=== PATIENT | male | born 1960 | race Caucasian/White ===

== ENCOUNTER 2018-01-24 16:10 | Inpatient (IN) | payer MEDICAID ==
[~2018-01-24] VITALS: Ht 195.6 cm; Wt 109.9 kg
[~2018-01-24 16:10] MED LIST: ARIP5TAB4 PO; FOLI1TAB16 PO; PANT-47 PO; THI100T PO; TRAZ-91 PO
[2018-01-24 16:38] LABS: BASOPHILS % (AUTO) 0.2 % (0-1); EOSINOPHILS % (AUTO) 0.2 % (0-6); HEMATOCRIT 26.8 % (42.0-52.0); HEMOGLOBIN 9.4 g/dl (14.0-17.9); LYMPHOCYTES # (AUTO) 3.7 X10'3 (1.1-4.8); LYMPHOCYTES % (AUTO) 20.7 % (21-51); MEAN CORPUSCULAR HEMOGLOBIN 33.6 PG (27.0-31.0); MEAN CORPUSCULAR HGB CONC 35.1 % (33.0-36.5); MEAN CORPUSCULAR VOLUME 95.8 FL (78-98); MEAN PLATELET VOLUME 7.5 FL (7.4-10.4); MONOCYTES # (AUTO) 1.1 X10'3 (0-0.9); MONOCYTES % (AUTO) 6.4 % (2-12); NEUTROPHILS # (AUTO) 12.9 X10'3 (1.8-7.7); NEUTROPHILS % (AUTO) 72.5 % (42-75); PLATELET COUNT 252 X10'3 (140-440); RED CELL DISTRIBUTION WIDTH 15.3 % (11.5-14.5); WHITE BLOOD COUNT 17.8 X10'3 (4.5-11.0)
[2018-01-24 16:48] LABS: PROTHROMBIN TIME 10.8 SECONDS (9.0-12.0)
[2018-01-24 16:53] LABS: ALANINE AMINOTRANSFERASE 54 U/L (12-78); ALBUMIN 2.6 G/DL (3.4-5.0); ALKALINE PHOSPHATASE 72 IU/L (46-116); AMYLASE 31 U/L (25-115); ANION GAP 13 (8-16); ASPARTATE AMINO TRANSFERASE 27 U/L (10-37); BILIRUBIN,TOTAL 0.3 MG/DL (0.1-1.0); BLOOD UREA NITROGEN 21 MG/DL (7-18); BUN/CREATININE RATIO 20.4 (5.4-32.0); CALCIUM 7.7 MG/DL (8.5-10.1); CHLORIDE 97 MMOL/L (99-107); CREATININE 1.03 MG/DL (0.60-1.10); GLUCOSE 171 MG/DL (70-104); LIPASE 150 U/L (73-393); SODIUM 133 MMOL/L (135-145); TOTAL CARBON DIOXIDE 23.3 MMOL/L (24-32); TOTAL PROTEIN 5.3 G/DL (6.4-8.2); eGFR 74 ML/MIN
[2018-01-24 16:55] LABS: POTASSIUM 2.7 MMOL/L (3.5-5.1)
[2018-01-24] MEDS ORDERED: normal saline 1000ml 1,000 ML IV ONE (20:20)
[2018-01-24] MEDS ORDERED: iohexol 300mg/ml 100ml inj. ONE (21:10)
[2018-01-24] MEDS ORDERED: potassium Cl 20 mEq SR tablet PO STA (21:17)
[2018-01-24] MEDS: potassium 10mEq/100ml NS w/LIDOcaine (10mg/bag) IV SCH ×2 (21:48→23:20)
[2018-01-24] MEDS ORDERED: morphine 4 MG/ML inj SYRINge IV ONE (22:20)
[2018-01-24] MEDS ORDERED: ondansetron/PF 4mg/2ml inj IV ONE (22:20)
[2018-01-24 23:00] LABS: INR 1.1 INR; PARTIAL THROMBOPLASTIN TIME 26 SECONDS (22-32); PROTHROMBIN TIME 11.3 SECONDS (9.0-12.0)
[2018-01-25] VITALS (7 sets, daily range): BP systolic 101–120; BP diastolic 53–72
[2018-01-25] MEDS ORDERED: mag hydrox/Alum hydrox/simeth 30ml oral suspension PO PRN (00:40)
[2018-01-25] MEDS ORDERED: dextrose 50%-water 50ml dispensing syringe IV PRN (00:40)
[2018-01-25] MEDS ORDERED: potassium Cl 40MEQ/NS 500ml 500 ML IV PRN ×2 (00:40)
[2018-01-25] MEDS ORDERED: diphenhydrAMINE 50 mg/ml inj IV PRN (00:40)
[2018-01-25] MEDS ORDERED: HYDROcodone/acetaminophen 5mg/325mg tablet PO PRN (00:40)
[2018-01-25] MEDS ORDERED: diphenhydrAMINE 25mg capsule PO PRN (00:40)
[2018-01-25] MEDS ORDERED: haloperidol 5mg tablet PO PRN (00:40)
[2018-01-25] MEDS ORDERED: acetaminophen 325mg tablet PO PRN ×2 (00:40)
[2018-01-25] MEDS ORDERED: acetaminophen 650mg rectal suppository RC PRN (00:40)
[2018-01-25] MEDS ORDERED: bisacodyl 10mg suppository rectal RC PRN (00:40)
[2018-01-25] MEDS ORDERED: metoclopramide 5 mg/ml inj IV PRN (00:40)
[2018-01-25] MEDS ORDERED: ondansetron/PF 4mg/2ml inj IV PRN (00:40)
[2018-01-25] MEDS ORDERED: potassium Cl 20 mEq SR tablet PO PRN ×2 (00:40)
[2018-01-25] MEDS ORDERED: morphine 4 MG/ML inj SYRINge IV PRN ×2 (00:40)
[2018-01-25] MEDS ORDERED: LORazepam 1 MG tablet PO PRN (00:40)
[2018-01-25] MEDS ORDERED: magnesium hydroxide 30ml (MOM) UD suspension PO PRN (00:40)
[2018-01-25] MEDS ORDERED: HYDROmorphone inj. 0.5 MG/0.5 ML DISP.SYRIN IV PRN ×2 (00:40)
[2018-01-25] MEDS ORDERED: thiamine 100mg/ml 2ml inj. IV ONE (00:40)
[2018-01-25] MEDS ORDERED: haloperidol lactate 5mg/ml inj IM PRN (00:40)
[2018-01-25 01:38] LABS: HEMOGLOBIN A1C 5.7 % (4.5-6.2)
[2018-01-25 01:47] LABS: ETHANOL < 0.010 GM/DL (0.0-0.010); MAGNESIUM 1.9 MG/DL (1.5-2.4)
[2018-01-25] MEDS: potassium Cl 20mEq in NS 1,000 ML IV SCH ×3 (02:13→21:45)
[2018-01-25] MEDS: LORazepam 2 mg/ml vial IV PRN ×2 (02:17→08:36)
[2018-01-25 02:25] LABS: CLARITY,URINE CLEAR (Clear); COLOR,URINE YELLOW (Yellow); GLUCOSE, URINE NEGATIVE (Neg); KETONES,URINE NEGATIVE (Neg); LEUKOCYTE ESTERASE ,URINE NEGATIVE (Neg); NITRITES, URINE NEGATIVE (Neg); OCCULT BLOOD,URINE NEGATIVE (Neg); PROTEIN,URINE NEGATIVE (Neg)
[2018-01-25 02:26] LABS: OCCULT BLOOD STOOL POSITIVE (Neg)
[2018-01-25 02:30] LABS: UA COLLECTION TYPE CLN CATCH MIDSTREAM
[2018-01-25 02:40] LABS: URINE AMPHETAMINE SCREEN NEGATIVE (Neg); URINE BARBITUATE SCREEN NEGATIVE (Neg); URINE BENZODIAZEPINES SCREEN NEGATIVE (Neg); URINE CANNABINOID SCREEN NEGATIVE (Neg); URINE COCAINE SCREEN NEGATIVE (Neg); URINE METHADONE SCREEN NEGATIVE (Neg); URINE OPIATE SCREEN POSITIVE (Neg); URINE PHENCYCLIDINE SCREEN NEGATIVE (Neg)
[2018-01-25 06:51] LABS: POTASSIUM 4.4 MMOL/L (3.5-5.1)
[2018-01-25] MEDS: K and/or MAG REPLACEMENT MC SCH (08:00)
[2018-01-25] MEDS: pantoprazole 40 MG vial IV SCH ×2 (08:36→21:45)
[2018-01-25] MEDS: nicotine 21mg patch - 24 hr TD SCH (08:48)
[2018-01-25] MEDS: folic acid 1mg tablet PO SCH (09:46)
[2018-01-25] MEDS: thiamine 100mg tablet PO SCH (09:47)
[2018-01-25] MEDS: aripiprazole 5mg tablet PO SCH (09:47)
[2018-01-25] MEDS: docusate sod 100mg capsule PO SCH ×2 (09:47→20:00)
[2018-01-25] MEDS: HYDROcodone/acetaminophen 10/325mg tab PO PRN (09:49)
[2018-01-25] MEDS ORDERED: LIDOcaine Viscous 15ml cup ONE (14:59)
[2018-01-25] MEDS ORDERED: MIDAZolam 5mg/5ml vial ONE (14:59)
[2018-01-25] MEDS ORDERED: fentaNYL/PF 50MCG/1 ML 2ML syringe ONE (14:59)
[2018-01-25] MEDS ORDERED: temazepam 15mg capsule PO PRN (21:00)
[2018-01-26] VITALS (12 sets, daily range): BP systolic 104–125; BP diastolic 57–78
[2018-01-26 05:29] LABS: BASOPHILS % (AUTO) 0.3 % (0-1); EOSINOPHILS # (AUTO) 0.1 X10'3 (0-0.9); EOSINOPHILS % (AUTO) 1.4 % (0-6); LYMPHOCYTES # (AUTO) 2.2 X10'3 (1.1-4.8); LYMPHOCYTES % (AUTO) 27.8 % (21-51); MEAN CORPUSCULAR HEMOGLOBIN 33.9 PG (27.0-31.0); MEAN CORPUSCULAR HGB CONC 35.8 % (33.0-36.5); MEAN CORPUSCULAR VOLUME 94.8 FL (78-98); MEAN PLATELET VOLUME 7.8 FL (7.4-10.4); MONOCYTES # (AUTO) 0.6 X10'3 (0-0.9); MONOCYTES % (AUTO) 7.2 % (2-12); NEUTROPHILS # (AUTO) 5.1 X10'3 (1.8-7.7); NEUTROPHILS % (AUTO) 63.3 % (42-75); PLATELET COUNT 171 X10'3 (140-440); RED BLOOD COUNT 2.04 X10'6 (4.70-6.10); RED CELL DISTRIBUTION WIDTH 15.7 % (11.5-14.5); WHITE BLOOD COUNT 8.1 X10'3 (4.5-11.0)
[2018-01-26 05:59] LABS: ALANINE AMINOTRANSFERASE 68 U/L (12-78); ALBUMIN 2.1 G/DL (3.4-5.0); ALKALINE PHOSPHATASE 57 IU/L (46-116); ANION GAP 6 (8-16); ASPARTATE AMINO TRANSFERASE 71 U/L (10-37); BILIRUBIN,TOTAL 0.5 MG/DL (0.1-1.0); BLOOD UREA NITROGEN 11 MG/DL (7-18); BUN/CREATININE RATIO 13.4 (5.4-32.0); CALCIUM 7.4 MG/DL (8.5-10.1); CHLORIDE 106 MMOL/L (99-107); CHOL/HDL RATIO 2.4 (0.00-4.99); CHOLESTEROL 90 MG/DL (0-200); CREATININE 0.82 MG/DL (0.60-1.10); GLUCOSE 99 MG/DL (70-104); HDL CHOLESTEROL 38 MG/DL (35-60); LDL CHOLESTEROL 44 MG/DL (50-100); POTASSIUM 4.1 MMOL/L (3.5-5.1); SODIUM 138 MMOL/L (135-145); TOTAL CARBON DIOXIDE 26.2 MMOL/L (24-32); TOTAL PROTEIN 4.3 G/DL (6.4-8.2); TRIGLYCERIDES 60 MG/DL (20-135); eGFR > 90 ML/MIN
[2018-01-26 06:22] LABS: HEMATOCRIT 19.4 % (42.0-52.0); HEMOGLOBIN 6.9 g/dl (14.0-17.9)
[2018-01-26] MEDS: potassium Cl 20mEq in NS 1,000 ML IV SCH ×2 (06:40→15:39)
[2018-01-26] MEDS: pantoprazole 40 MG vial IV SCH ×2 (07:07→19:26)
[2018-01-26] MEDS: folic acid 1mg tablet PO SCH (07:08)
[2018-01-26] MEDS: thiamine 100mg tablet PO SCH (07:08)
[2018-01-26] MEDS: aripiprazole 5mg tablet PO SCH (07:08)
[2018-01-26] MEDS: docusate sod 100mg capsule PO SCH ×2 (07:08→19:13)
[2018-01-26] MEDS: nicotine 21mg patch - 24 hr TD SCH (07:09)
[2018-01-26] MEDS: K and/or MAG REPLACEMENT MC SCH (07:14)
[2018-01-26 17:08] LABS: HEMATOCRIT 24.6 % (42.0-52.0); HEMOGLOBIN 8.6 g/dl (14.0-17.9); MEAN CORPUSCULAR HEMOGLOBIN 32.9 PG (27.0-31.0); MEAN CORPUSCULAR HGB CONC 35.1 % (33.0-36.5); MEAN CORPUSCULAR VOLUME 93.8 FL (78-98); MEAN PLATELET VOLUME 7.5 FL (7.4-10.4); PLATELET COUNT 190 X10'3 (140-440); RED BLOOD COUNT 2.62 X10'6 (4.70-6.10); RED CELL DISTRIBUTION WIDTH 16.6 % (11.5-14.5); WHITE BLOOD COUNT 8.3 X10'3 (4.5-11.0)
[2018-01-27] VITALS: BP 132/74
[2018-01-27] MEDS: potassium Cl 20mEq in NS 1,000 ML IV SCH ×2 (01:54→13:08)
[2018-01-27 05:37] LABS: BASOPHILS % (AUTO) 0.4 % (0-1); EOSINOPHILS # (AUTO) 0.2 X10'3 (0-0.9); HEMATOCRIT 24.3 % (42.0-52.0); HEMOGLOBIN 8.7 g/dl (14.0-17.9); LYMPHOCYTES # (AUTO) 2.7 X10'3 (1.1-4.8); LYMPHOCYTES % (AUTO) 31.7 % (21-51); MEAN CORPUSCULAR HEMOGLOBIN 33.4 PG (27.0-31.0); MEAN CORPUSCULAR HGB CONC 35.7 % (33.0-36.5); MEAN CORPUSCULAR VOLUME 93.6 FL (78-98); MEAN PLATELET VOLUME 7.9 FL (7.4-10.4); MONOCYTES # (AUTO) 0.7 X10'3 (0-0.9); MONOCYTES % (AUTO) 7.8 % (2-12); NEUTROPHILS % (AUTO) 58.1 % (42-75); PLATELET COUNT 193 X10'3 (140-440); RED CELL DISTRIBUTION WIDTH 16.2 % (11.5-14.5); WHITE BLOOD COUNT 8.6 X10'3 (4.5-11.0)
[2018-01-27 06:19] LABS: ALANINE AMINOTRANSFERASE 71 U/L (12-78); ALBUMIN 2.2 G/DL (3.4-5.0); ALBUMIN/GLOBULIN RATIO 0.9 (1.1-1.5); ALKALINE PHOSPHATASE 63 IU/L (46-116); ANION GAP 8 (8-16); ASPARTATE AMINO TRANSFERASE 51 U/L (10-37); BILIRUBIN,TOTAL 0.4 MG/DL (0.1-1.0); BLOOD UREA NITROGEN 7 MG/DL (7-18); BUN/CREATININE RATIO 8.8 (5.4-32.0); CALCIUM 7.9 MG/DL (8.5-10.1); CHLORIDE 107 MMOL/L (99-107); GLUCOSE 101 MG/DL (70-104); POTASSIUM 4.1 MMOL/L (3.5-5.1); SODIUM 140 MMOL/L (135-145); TOTAL CARBON DIOXIDE 25.1 MMOL/L (24-32); TOTAL PROTEIN 4.7 G/DL (6.4-8.2); eGFR > 90 ML/MIN
[2018-01-27] MEDS: K and/or MAG REPLACEMENT MC SCH (06:30)
[2018-01-27] MEDS: thiamine 100mg tablet PO SCH (07:55)
[2018-01-27] MEDS: docusate sod 100mg capsule PO SCH (07:55)
[2018-01-27] MEDS: folic acid 1mg tablet PO SCH (07:55)
[2018-01-27] MEDS: aripiprazole 5mg tablet PO SCH (07:55)
[2018-01-27] MEDS: HYDROcodone/acetaminophen 10/325mg tab PO PRN (07:55)
[2018-01-27] MEDS: pantoprazole 40 MG vial IV SCH (07:56)
[2018-01-27] MEDS: nicotine 21mg patch - 24 hr TD SCH (07:57)
[2018-01-27 08:00] VITALS: BP 128/76
[2018-01-27] MEDS ORDERED: AMOX-445 PO (15:22)
[2018-01-27] MEDS ORDERED: PANT-47 PO (15:22)
== END 2018-01-27 16:00 | disposition home or self-care (01) | DRG 241 ==
LOC: ER 16:11 → ED HOLD 01-25 00:40 → SUR 3N 01-25 17:01
PROVIDERS: ADMIT Family Medicine; ATTEND Family Medicine
PROC: BW211ZZ Computerized Tomography (CT Scan) of Abdomen and Pelvis using Low Osmolar Contrast (ICD-10-PCS; 2018-01-24)
PROC: 0DB58ZX Excision of Esophagus, Via Natural or Artificial Opening Endoscopic, Diagnostic (ICD-10-PCS; principal; 2018-01-25)
PROC: 0DB68ZX Excision of Stomach, Via Natural or Artificial Opening Endoscopic, Diagnostic (ICD-10-PCS; 2018-01-25)
PROC: 30233N1 Transfusion of Nonautologous Red Blood Cells into Peripheral Vein, Percutaneous Approach (ICD-10-PCS; 2018-01-26)
DX: K26.4 Chronic or unspecified duodenal ulcer with hemorrhage (principal); D35.01 Benign neoplasm of right adrenal gland; E86.0 Dehydration; D64.9 Anemia, unspecified; D72.829 Elevated white blood cell count, unspecified; E87.6 Hypokalemia; D62 Acute posthemorrhagic anemia; K44.9 Diaphragmatic hernia without obstruction or gangrene; F10.20 Alcohol dependence, uncomplicated; F15.90 Other stimulant use, unspecified, uncomplicated; Y90.9 Presence of alcohol in blood, level not specified; K29.70 Gastritis, unspecified, without bleeding; F12.90 Cannabis use, unspecified, uncomplicated; F17.210 Nicotine dependence, cigarettes, uncomplicated; F31.9 Bipolar disorder, unspecified; K21.0 Gastro-esophageal reflux disease with esophagitis; F41.9 Anxiety disorder, unspecified; R73.9 Hyperglycemia, unspecified; Z79.1 Long term (current) use of non-steroidal anti-inflammatories (NSAID); Z79.899 Other long term (current) drug therapy
CPT/HCPCS: 36415; 43239; 71045; 74177; 76700; 80053; 80061; 80305; 80320; 81003; 82150; 82272; 82948; 83036; 83690; 83735; 83880; 84100; 84132; 85025; 85027; 85610; 85730; 86885; 86900; 86901; 86920; 87070; 93005; 96365; 96375; 99285; A4620; C9113; G0500; J2060; J2250; J2270; J2405; J3010; J3411; J3480; J7030; P9016; Q9967

== ENCOUNTER 2018-02-03 12:24 | Inpatient (IN) | payer MEDICAID ==
[2018-02-03] VITALS (18 sets, daily range): BP systolic 84–190; BP diastolic 47–80
[~2018-02-03] VITALS: Ht 195.6 cm; Wt 103.9 kg
[~2018-02-03 12:24] MED LIST changes: +AMOX-445 PO; -TRAZ-91 PO
[2018-02-03] MEDS ORDERED: ondansetron/PF 4mg/2ml inj IV ONE (12:30)
[2018-02-03] MEDS ORDERED: normal saline 1000ml 1,000 ML IV ONE (12:30)
[2018-02-03] MEDS ORDERED: pantoprazole 40 MG vial IV ONE ×2 (12:30→13:30)
[2018-02-03 13:07] LABS: BASOPHILS % (AUTO) 0.3 % (0-1); EOSINOPHILS # (AUTO) 0.2 X10'3 (0-0.9); EOSINOPHILS % (AUTO) 1.8 % (0-6); HEMATOCRIT 22.2 % (42.0-52.0); HEMOGLOBIN 7.3 g/dl (14.0-17.9); LYMPHOCYTES # (AUTO) 2.6 X10'3 (1.1-4.8); LYMPHOCYTES % (AUTO) 21.5 % (21-51); MEAN CORPUSCULAR HEMOGLOBIN 30.8 PG (27.0-31.0); MEAN CORPUSCULAR HGB CONC 32.7 % (33.0-36.5); MEAN CORPUSCULAR VOLUME 94.1 FL (78-98); MEAN PLATELET VOLUME 6.9 FL (7.4-10.4); MONOCYTES # (AUTO) 0.6 X10'3 (0-0.9); MONOCYTES % (AUTO) 5.4 % (2-12); NEUTROPHILS # (AUTO) 8.5 X10'3 (1.8-7.7); PLATELET COUNT 449 X10'3 (140-440); RED BLOOD COUNT 2.36 X10'6 (4.70-6.10); RED CELL DISTRIBUTION WIDTH 16.7 % (11.5-14.5); WHITE BLOOD COUNT 11.9 X10'3 (4.5-11.0)
[2018-02-03] MEDS ORDERED: tranexamic acid inj. 1,000 MG in normal saline 100ml IV soln 90 ML IV ONE (13:10)
[2018-02-03 13:18] LABS: INR 1.1 INR; PARTIAL THROMBOPLASTIN TIME 24 SECONDS (22-32); PROTHROMBIN TIME 10.9 SECONDS (9.0-12.0)
[2018-02-03 13:22] LABS: ALANINE AMINOTRANSFERASE 44 U/L (12-78); ALBUMIN 2.4 G/DL (3.4-5.0); ALBUMIN/GLOBULIN RATIO 0.9 (1.1-1.5); ALKALINE PHOSPHATASE 81 IU/L (46-116); AMYLASE 36 U/L (25-115); ANION GAP 11 (8-16); ASPARTATE AMINO TRANSFERASE 26 U/L (10-37); BILIRUBIN,TOTAL 0.3 MG/DL (0.1-1.0); BLOOD UREA NITROGEN 19 MG/DL (7-18); BUN/CREATININE RATIO 17.3 (5.4-32.0); CHLORIDE 106 MMOL/L (99-107); ETHANOL < 0.010 GM/DL (0.0-0.010); GLUCOSE 132 MG/DL (70-104); LIPASE 115 U/L (73-393); MAGNESIUM 1.8 MG/DL (1.5-2.4); SODIUM 139 MMOL/L (135-145); TOTAL CARBON DIOXIDE 21.7 MMOL/L (24-32); TOTAL PROTEIN 5.2 G/DL (6.4-8.2); eGFR 69 ML/MIN
[2018-02-03] MEDS ORDERED: octreotide inj. 1,250 MCG in normal saline 250ml IV soln 250 ML IV ONE (13:27)
[2018-02-03] MEDS ORDERED: pantoprazole 40MG/NS 100ML BAG 100 ML IV ONE (13:30)
[2018-02-03] MEDS ORDERED: octreotide 100mcg/1 ml ampule IV ONE (13:30)
[2018-02-03] MEDS ORDERED: metoclopramide 5 mg/ml inj IV ONE (13:30)
[2018-02-03 13:59] LABS: MEAN CORPUSCULAR HEMOGLOBIN 31.3 PG (27.0-31.0); MEAN CORPUSCULAR HGB CONC 33.4 % (33.0-36.5); MEAN CORPUSCULAR VOLUME 93.8 FL (78-98); MEAN PLATELET VOLUME 6.9 FL (7.4-10.4); PLATELET COUNT 353 X10'3 (140-440); RED BLOOD COUNT 2.02 X10'6 (4.70-6.10); RED CELL DISTRIBUTION WIDTH 17.1 % (11.5-14.5); WHITE BLOOD COUNT 11.8 X10'3 (4.5-11.0)
[2018-02-03 14:11] LABS: HEMATOCRIT 18.9 % (42.0-52.0); HEMOGLOBIN 6.3 g/dl (14.0-17.9)
[2018-02-03] MEDS ORDERED: normal saline 1000ml 1,000 ML IV SCH (14:39)
[2018-02-03] MEDS ORDERED: simethicone 40mg/0.6ml oral drops 30ml MC ONE (14:40)
[2018-02-03] MEDS ORDERED: MIDAZolam 5mg/5ml vial IV PRN (14:40)
[2018-02-03] MEDS ORDERED: fentaNYL/PF 50MCG/1 ML 2ML syringe IV PRN (14:40)
[2018-02-03] MEDS ORDERED: LIDOcaine Viscous 15ml cup PO ONE (14:40)
[2018-02-03] MEDS ORDERED: fentaNYL/PF 50MCG/1 ML 2ML syringe ONE ×3 (14:46→18:27)
[2018-02-03] MEDS ORDERED: MIDAZolam 5mg/5ml vial ONE ×2 (14:46→16:16)
[2018-02-03] MEDS ORDERED: LIDOcaine Viscous 15ml cup ONE (14:47)
[2018-02-03] MEDS ORDERED: epiNEPHrine 0.1mg/ml 10ml syringe ONE ×2 (15:15)
[2018-02-03] MEDS ORDERED: ringers solution, lacted 1,000 ML IV ONE (15:50)
[2018-02-03] MEDS ORDERED: ketamine 10mg/ml 20ml inj ONE (16:13)
[2018-02-03] MEDS ORDERED: rocuronium 10mg/ml inj IV ONE ×4 (16:17→19:00)
[2018-02-03] MEDS ORDERED: heparin 10,000 units/1 ML INJ ONE (16:18)
[2018-02-03] MEDS ORDERED: ceFAZolin 1000mg inj ONE (16:19)
[2018-02-03] MEDS ORDERED: ceFOXitin 2 GM ADDvantage bag 100 ML IV ONE (16:35)
[2018-02-03] MEDS ORDERED: ondansetron/PF 4mg/2ml inj ONE (16:44)
[2018-02-03] MEDS ORDERED: dexamethasone sod phosphate 4mg/ml inj. ONE (16:44)
[2018-02-03] MEDS ORDERED: sevoflurane 250ml liquid IH ONE (16:44)
[2018-02-03 17:06] LABS: MEAN CORPUSCULAR HEMOGLOBIN 30.7 PG (27.0-31.0); MEAN CORPUSCULAR HGB CONC 33.1 % (33.0-36.5); MEAN CORPUSCULAR VOLUME 92.8 FL (78-98); MEAN PLATELET VOLUME 7.8 FL (7.4-10.4); PLATELET COUNT 210 X10'3 (140-440); RED BLOOD COUNT 1.85 X10'6 (4.70-6.10); RED CELL DISTRIBUTION WIDTH 17.4 % (11.5-14.5)
[2018-02-03 17:08] LABS: HEMATOCRIT 17.2 % (42.0-52.0); HEMOGLOBIN 5.7 g/dl (14.0-17.9)
[2018-02-03] MEDS ORDERED: magnesium 4gm in 100ml NS 100 ML IV PRN (17:30)
[2018-02-03] MEDS ORDERED: potassium Cl 40MEQ/NS 500ml 500 ML IV PRN ×2 (17:30)
[2018-02-03] MEDS ORDERED: magnesium 2GM in 50ml NS 50 ML IV PRN (17:30)
[2018-02-03] MEDS ORDERED: dextrose 50%-water 50ml dispensing syringe IV PRN (17:30)
[2018-02-03] MEDS ORDERED: sodium phosphate inj. 30 MMOL in dextrose 5%-water 250 ML IV PRN (17:30)
[2018-02-03] MEDS ORDERED: sodium phosphate inj. 15 MMOL in dextrose 5%-water 150 ML IV PRN (17:30)
[2018-02-03] MEDS ORDERED: ipratropium/albuterol 3ml nebule NEB PRN (17:30)
[2018-02-03] MEDS ORDERED: potassium Cl 40MEQ/250ML bag 250 ML IV PRN ×2 (17:30)
[2018-02-03] MEDS ORDERED: albumin (Human) 5% 250ml 250 ML IV ONE ×3 (17:51→17:59)
[2018-02-03] MEDS ORDERED: ALBUMIN 5% IV ONE (18:00)
[2018-02-03] MEDS ORDERED: ringers solution, lacted 1,000 ML IV SCH ×2 (18:09→19:45)
[2018-02-03 18:10] LABS: ISTAT ANION GAP 8 (8-12); ISTAT BUN 21 mg/dL (6-19); ISTAT CL 110 mmol/L (99-107); ISTAT CREATININE 0.8 mg/dL (0.8-1.3); ISTAT GLUCOSE 192 mg/dL (70-104); ISTAT IONIZED CALCIUM 1.06 mmol/L (1.03-1.32); ISTAT K 4.5 mmol/L (3.5-5.1); ISTAT NA 138 mmol/L (135-145); ISTAT TOTAL CO2 20 mmol/L (24-32); ISTAT eGFR > 90 ML/MIN; POC BUN/CREATININE RATIO 26.3 (5.4-32.0)
[2018-02-03] MEDS ORDERED: ondansetron/PF 4mg/2ml inj IV PRN ×2 (18:10→19:45)
[2018-02-03] MEDS ORDERED: albuterol 2.5 MG/3 ML nebule NEB ONE (18:10)
[2018-02-03 18:19] LABS: ISTAT HGB 6.5 g/dl (14.0-18.0)
[2018-02-03 18:20] LABS: ISTAT Hct 19 %PCV (42-52)
[2018-02-03] MEDS ORDERED: clindamycin phosphate 150mg/ml inj. ONE ×2 (18:21)
[2018-02-03] MEDS ORDERED: gentamicin 40 MG/1 ML inj ONE (18:21)
[2018-02-03] MEDS ORDERED: labetalol 5mg/ml 20ml inj. IV PRN (19:45)
[2018-02-03] MEDS ORDERED: hydrALAZINE 20mg/ml inj. IV PRN (19:45)
[2018-02-03] MEDS: FENTANYL-0.9 % NACL/PF 100 ML IV PRN ×2 (20:01→23:40)
[2018-02-03] MEDS: midazolam 100mg in NS 100ml 100 ML IV SCH (20:02)
[2018-02-03 20:20] LABS: ABG BASE EXCESS -7.3 mmol/L (-2.0-3.0); ABG HCO3 18.8 mmol/L (22.0-26.0); ABG OXYGEN SATURATION 98.9 % (95-98); ABG PCO2 (T) 38.5 mmHg (35.0-48.0); ABG PH (T) 7.302 (7.350-7.450); ABG PO2 (T) 226.5 mmHg (83-108); FCOHb 0.3 % (0.5-1.5); FMetHb 0.1 % (0.3-1.12); FO2Hb 98.5 % (94-100); MINUTE VOLUME 10 L/min; PEEP 5 cm H2O; RESPIRATORY RATE 12 b/min; RESPIRATORY RATE (OBSERVED) 12 b/min; TIDAL VOLUME 750 mL; TOTAL HEMOGLOBIN 11.2 G/dl (14.0-18.0)
[2018-02-03 20:25] LABS: HEMATOCRIT 29.3 % (42.0-52.0); MEAN CORPUSCULAR HEMOGLOBIN 30.9 PG (27.0-31.0); MEAN CORPUSCULAR HGB CONC 34.3 % (33.0-36.5); MEAN CORPUSCULAR VOLUME 90.2 FL (78-98); MEAN PLATELET VOLUME 6.7 FL (7.4-10.4); NEUTROPHILS % (AUTO) 90.8 % (42-75); PLATELET COUNT 213 X10'3 (140-440); RED BLOOD COUNT 3.25 X10'6 (4.70-6.10); RED CELL DISTRIBUTION WIDTH 15.9 % (11.5-14.5); WHITE BLOOD COUNT 16.3 X10'3 (4.5-11.0)
[2018-02-03 20:26] LABS: BASOPHILS % (AUTO) 0.1 % (0-1); EOSINOPHILS # (AUTO) 0.2 X10'3 (0-0.9); EOSINOPHILS % (AUTO) 1.2 % (0-6); MONOCYTES # (AUTO) 0.3 X10'3 (0-0.9); MONOCYTES % (AUTO) 1.9 % (2-12); NEUTROPHILS # (AUTO) 14.8 X10'3 (1.8-7.7)
[2018-02-03] MEDS: pantoprazole 40MG/NS 100ML BAG 100 ML IV SCH (20:44)
[2018-02-03] MEDS: octreotide inj. 1,250 MCG in normal saline 250ml IV soln 243.75 ML IV SCH (20:57)
[2018-02-03 20:59] LABS: ALANINE AMINOTRANSFERASE 28 U/L (12-78); ALBUMIN 1.9 G/DL (3.4-5.0); ALBUMIN/GLOBULIN RATIO 1.2 (1.1-1.5); ALKALINE PHOSPHATASE 47 IU/L (46-116); ANION GAP 12 (8-16); ASPARTATE AMINO TRANSFERASE 22 U/L (10-37); BILIRUBIN,TOTAL 0.3 MG/DL (0.1-1.0); BLOOD UREA NITROGEN 23 MG/DL (7-18); BUN/CREATININE RATIO 20.7 (5.4-32.0); CHLORIDE 111 MMOL/L (99-107); CREATININE 1.11 MG/DL (0.60-1.10); GLUCOSE 193 MG/DL (70-104); POTASSIUM 4.6 MMOL/L (3.5-5.1); SODIUM 141 MMOL/L (135-145); TOTAL CARBON DIOXIDE 18.3 MMOL/L (24-32); TOTAL PROTEIN 3.5 G/DL (6.4-8.2); eGFR 68 ML/MIN
[2018-02-03] MEDS: folic acid inj. 2 MG, thiamine inj. 100 MG, MVI, adult No.4 with vit. K 10 ML in dextro... IV SCH ×4 (21:00)
[2018-02-03] MEDS: pantoprazole 40 MG vial IV SCH (21:04)
[2018-02-03] MEDS: K, MAG and/or Phos replacement - Verify level? MC SCH (21:04)
[2018-02-03 21:07] LABS: CALCIUM 6.3 MG/DL (8.5-10.1)
[2018-02-03] MEDS ORDERED: octreotide 200mcg/ml 5ml vial ONE (21:32)
[2018-02-03] MEDS: potassium CL 20mEq in D5-1/2NS 1,000 ML IV SCH (21:56)
[2018-02-04] VITALS (24 sets, daily range): BP systolic 122–145; BP diastolic 54–70
[2018-02-04] MEDS: ceFOXitin 1 GM ADDVANTAGE BAG 1,000 MG in normal saline 100ml IV soln 100 ML IV SCH ×2 (00:15→07:38)
[2018-02-04] MEDS: pantoprazole 40MG/NS 100ML BAG 100 ML IV SCH ×6 (00:16→20:42)
[2018-02-04] MEDS: midazolam 100mg in NS 100ml 100 ML IV SCH ×3 (01:38→20:41)
[2018-02-04] MEDS ORDERED: dextrose ORAL solution 15 GM/59 ML bottle PO PRN ×2 (03:05)
[2018-02-04] MEDS ORDERED: glucagon, human recombinant 1mg kit SUBCUT PRN (03:05)
[2018-02-04] MEDS ORDERED: dextrose 50%-water 50ml dispensing syringe IV PRN ×2 (03:05)
[2018-02-04] MEDS: insulin Lispro (HumaLOG) vial - multi-dose SQ SCH ×3 (03:09→14:13)
[2018-02-04 03:12] LABS: BASOPHILS % (AUTO) 0 % (0-1); EOSINOPHILS # (AUTO) 0.3 X10'3 (0-0.9); EOSINOPHILS % (AUTO) 0.9 % (0-6); HEMATOCRIT 28.5 % (42.0-52.0); HEMOGLOBIN 9.8 g/dl (14.0-17.9); LYMPHOCYTES # (AUTO) 1.2 X10'3 (1.1-4.8); LYMPHOCYTES % (AUTO) 3.9 % (21-51); MEAN CORPUSCULAR HGB CONC 34.3 % (33.0-36.5); MEAN CORPUSCULAR VOLUME 90.2 FL (78-98); MEAN PLATELET VOLUME 7.2 FL (7.4-10.4); MONOCYTES # (AUTO) 0.9 X10'3 (0-0.9); NEUTROPHILS # (AUTO) 27.6 X10'3 (1.8-7.7); NEUTROPHILS % (AUTO) 92.2 % (42-75); PLATELET COUNT 214 X10'3 (140-440); RED BLOOD COUNT 3.16 X10'6 (4.70-6.10); RED CELL DISTRIBUTION WIDTH 15.4 % (11.5-14.5)
[2018-02-04 03:18] LABS: WHITE BLOOD COUNT 29.9 X10'3 (4.5-11.0)
[2018-02-04 03:24] LABS: INR 1.1 INR; PARTIAL THROMBOPLASTIN TIME 30 SECONDS (22-32); PROTHROMBIN TIME 11.4 SECONDS (9.0-12.0)
[2018-02-04 03:27] LABS: ALANINE AMINOTRANSFERASE 38 U/L (12-78); ALBUMIN 2.5 G/DL (3.4-5.0); ALBUMIN/GLOBULIN RATIO 1.3 (1.1-1.5); ALKALINE PHOSPHATASE 48 IU/L (46-116); AMYLASE 19 U/L (25-115); ANION GAP 8 (8-16); ASPARTATE AMINO TRANSFERASE 29 U/L (10-37); BLOOD UREA NITROGEN 18 MG/DL (7-18); BUN/CREATININE RATIO 19.6 (5.4-32.0); CHLORIDE 111 MMOL/L (99-107); CREATININE 0.92 MG/DL (0.60-1.10); GLUCOSE 217 MG/DL (70-104); MAGNESIUM 1.6 MG/DL (1.5-2.4); PHOSPHORUS 3.5 MG/DL (2.3-4.5); POTASSIUM 4.9 MMOL/L (3.5-5.1); SODIUM 140 MMOL/L (135-145); TOTAL CARBON DIOXIDE 20.7 MMOL/L (24-32); TOTAL PROTEIN 4.5 G/DL (6.4-8.2); eGFR 85 ML/MIN
[2018-02-04 03:30] LABS: ABG BASE EXCESS -5.6 mmol/L (-2.0-3.0); ABG HCO3 19.8 mmol/L (22.0-26.0); ABG OXYGEN SATURATION 97.5 % (95-98); ABG PH (T) 7.335 (7.350-7.450); ABG PO2 (T) 106.9 mmHg (83-108); FCOHb 0.3 % (0.5-1.5); FO2Hb 97.2 % (94-100); MINUTE VOLUME 9 L/min; PATIENT TEMPERATURE 36.8; PEEP 5 cm H2O; RESPIRATORY RATE 12 b/min; RESPIRATORY RATE (OBSERVED) 12 b/min; TIDAL VOLUME 700 mL; TOTAL HEMOGLOBIN 10.4 G/dl (14.0-18.0)
[2018-02-04 04:16] LABS: TOTAL CELLS COUNTED 100
[2018-02-04 04:17] LABS: ANISOCYTOSIS 1+; PLATELET ESTIMATE NORMAL; POLYCHROMASIA 1+
[2018-02-04] MEDS: potassium CL 20mEq in D5-1/2NS 1,000 ML IV SCH (05:26)
[2018-02-04] MEDS: FENTANYL-0.9 % NACL/PF 100 ML IV PRN ×3 (05:26→23:42)
[2018-02-04] MEDS: sodium chloride 0.45% 1,000 ML IV SCH ×2 (07:38→17:24)
[2018-02-04] MEDS: pantoprazole 40 MG vial IV SCH (07:39)
[2018-02-04] MEDS: K, MAG and/or Phos replacement - Verify level? MC SCH (07:46)
[2018-02-04] MEDS ORDERED: thiamine inj. 100 MG, MVI, adult No.4 with vit. K 10 ML in dextrose 5% water 500ml 489 ML IV SCH ×3 (08:40)
[2018-02-04] MEDS: folic acid inj. 2 MG, thiamine inj. 100 MG, MVI, adult No.4 with vit. K 10 ML in dextro... IV SCH ×4 (09:12)
[2018-02-04] MEDS ORDERED: furosemide 40mg/4ml inj IV ONE (13:45)
[2018-02-04] MEDS: octreotide inj. 1,250 MCG in normal saline 250ml IV soln 243.75 ML IV SCH ×2 (14:30→18:59)
[2018-02-04] MEDS: insulin glargine (Lantus) pen - multi-dose SQ SCH (21:00)
[2018-02-05] VITALS (23 sets, daily range): BP systolic 90–149; BP diastolic 46–72
[2018-02-05] MEDS: sodium chloride 0.45% 1,000 ML IV SCH ×3 (01:36→22:37)
[2018-02-05] MEDS: pantoprazole 40MG/NS 100ML BAG 100 ML IV SCH ×6 (01:36→22:37)
[2018-02-05 02:39] LABS: BASOPHILS % (AUTO) 0.1 % (0-1); EOSINOPHILS # (AUTO) 0.4 X10'3 (0-0.9); EOSINOPHILS % (AUTO) 2.3 % (0-6); HEMATOCRIT 25.1 % (42.0-52.0); HEMOGLOBIN 8.6 g/dl (14.0-17.9); LYMPHOCYTES # (AUTO) 1.5 X10'3 (1.1-4.8); LYMPHOCYTES % (AUTO) 7.8 % (21-51); MEAN CORPUSCULAR HEMOGLOBIN 31.1 PG (27.0-31.0); MEAN CORPUSCULAR HGB CONC 34.3 % (33.0-36.5); MEAN CORPUSCULAR VOLUME 90.6 FL (78-98); MEAN PLATELET VOLUME 7.5 FL (7.4-10.4); MONOCYTES # (AUTO) 0.8 X10'3 (0-0.9); MONOCYTES % (AUTO) 4.5 % (2-12); NEUTROPHILS % (AUTO) 85.3 % (42-75); PLATELET COUNT 202 X10'3 (140-440); RED BLOOD COUNT 2.77 X10'6 (4.70-6.10); WHITE BLOOD COUNT 18.7 X10'3 (4.5-11.0)
[2018-02-05 02:49] LABS: PARTIAL THROMBOPLASTIN TIME 31 SECONDS (22-32); PROTHROMBIN TIME 10.8 SECONDS (9.0-12.0)
[2018-02-05 02:57] LABS: ALANINE AMINOTRANSFERASE 31 U/L (12-78); ALBUMIN 2.1 G/DL (3.4-5.0); ALBUMIN/GLOBULIN RATIO 0.9 (1.1-1.5); ALKALINE PHOSPHATASE 48 IU/L (46-116); AMYLASE 21 U/L (25-115); ANION GAP 7 (8-16); ASPARTATE AMINO TRANSFERASE 27 U/L (10-37); BILIRUBIN,TOTAL 0.6 MG/DL (0.1-1.0); BLOOD UREA NITROGEN 10 MG/DL (7-18); BUN/CREATININE RATIO 11.1 (5.4-32.0); CALCIUM 7.2 MG/DL (8.5-10.1); CHLORIDE 107 MMOL/L (99-107); GLUCOSE 152 MG/DL (70-104); MAGNESIUM 1.7 MG/DL (1.5-2.4); PHOSPHORUS 2.3 MG/DL (2.3-4.5); POTASSIUM 3.8 MMOL/L (3.5-5.1); SODIUM 138 MMOL/L (135-145); TOTAL CARBON DIOXIDE 24.4 MMOL/L (24-32); TOTAL PROTEIN 4.4 G/DL (6.4-8.2); eGFR 87 ML/MIN
[2018-02-05 03:11] LABS: ABG BASE EXCESS 0.2 mmol/L (-2.0-3.0); ABG OXYGEN SATURATION 96.1 % (95-98); ABG PCO2 (T) 41.4 mmHg (35.0-48.0); ABG PO2 (T) 85.2 mmHg (83-108); FCOHb 0.3 % (0.5-1.5); FMetHb 0.1 % (0.3-1.12); FO2Hb 95.7 % (94-100); MINUTE VOLUME 9 L/min; PATIENT TEMPERATURE 37.2; PEEP 5 cm H2O; RESPIRATORY RATE 12 b/min; RESPIRATORY RATE (OBSERVED) 12 b/min; TIDAL VOLUME 700 mL; TOTAL HEMOGLOBIN 9.3 G/dl (14.0-18.0)
[2018-02-05] MEDS: midazolam 100mg in NS 100ml 100 ML IV SCH (04:58)
[2018-02-05] MEDS: FENTANYL-0.9 % NACL/PF 100 ML IV PRN ×2 (06:44→18:45)
[2018-02-05] MEDS: folic acid inj. 2 MG, thiamine inj. 100 MG, MVI, adult No.4 with vit. K 10 ML in dextro... IV SCH ×4 (07:25)
[2018-02-05] MEDS: pantoprazole 40 MG vial IV SCH (07:25)
[2018-02-05] MEDS: K, MAG and/or Phos replacement - Verify level? MC SCH (07:33)
[2018-02-05] MEDS: dexmedetomidin/NS 400mcg/100ml 100 ML IV SCH ×2 (12:49→18:45)
[2018-02-05] MEDS: octreotide inj. 1,250 MCG in normal saline 250ml IV soln 243.75 ML IV SCH (16:24)
[2018-02-05] MEDS: insulin glargine (Lantus) pen - multi-dose SQ SCH (21:00)
[2018-02-05] MEDS: nystatin 500,000 unit/5ML UD oral suspension PO SCH (21:35)
[2018-02-06] VITALS (24 sets, daily range): BP systolic 100–135; BP diastolic 57–84
[2018-02-06] MEDS: ceFOXitin 2 GM ADDvantage bag 100 ML IV SCH ×3 (01:39→13:53)
[2018-02-06] MEDS: pantoprazole 40MG/NS 100ML BAG 100 ML IV SCH ×2 (02:36→07:46)
[2018-02-06 03:11] LABS: PARTIAL THROMBOPLASTIN TIME 27 SECONDS (22-32); PROTHROMBIN TIME 10.3 SECONDS (9.0-12.0)
[2018-02-06 03:13] LABS: ALANINE AMINOTRANSFERASE 27 U/L (12-78); ALBUMIN 1.9 G/DL (3.4-5.0); ALBUMIN/GLOBULIN RATIO 0.7 (1.1-1.5); ALKALINE PHOSPHATASE 45 IU/L (46-116); AMYLASE 39 U/L (25-115); ANION GAP 4 (8-16); ASPARTATE AMINO TRANSFERASE 19 U/L (10-37); BILIRUBIN,TOTAL 0.5 MG/DL (0.1-1.0); BLOOD UREA NITROGEN 10 MG/DL (7-18); BUN/CREATININE RATIO 8.6 (5.4-32.0); CALCIUM 7.5 MG/DL (8.5-10.1); CHLORIDE 107 MMOL/L (99-107); CREATININE 1.16 MG/DL (0.60-1.10); GLUCOSE 137 MG/DL (70-104); MAGNESIUM 1.6 MG/DL (1.5-2.4); POTASSIUM 3.8 MMOL/L (3.5-5.1); SODIUM 137 MMOL/L (135-145); TOTAL PROTEIN 4.6 G/DL (6.4-8.2); eGFR 65 ML/MIN
[2018-02-06 03:16] LABS: BASOPHILS % (AUTO) 0.1 % (0-1); EOSINOPHILS # (AUTO) 0.1 X10'3 (0-0.9); EOSINOPHILS % (AUTO) 0.7 % (0-6); HEMATOCRIT 23.4 % (42.0-52.0); LYMPHOCYTES # (AUTO) 1.1 X10'3 (1.1-4.8); LYMPHOCYTES % (AUTO) 7.9 % (21-51); MEAN CORPUSCULAR HEMOGLOBIN 30.9 PG (27.0-31.0); MEAN CORPUSCULAR VOLUME 90.8 FL (78-98); MEAN PLATELET VOLUME 8.1 FL (7.4-10.4); MONOCYTES # (AUTO) 0.7 X10'3 (0-0.9); MONOCYTES % (AUTO) 4.9 % (2-12); NEUTROPHILS # (AUTO) 12.5 X10'3 (1.8-7.7); NEUTROPHILS % (AUTO) 86.4 % (42-75); PLATELET COUNT 180 X10'3 (140-440); RED BLOOD COUNT 2.58 X10'6 (4.70-6.10); RED CELL DISTRIBUTION WIDTH 15.5 % (11.5-14.5); WHITE BLOOD COUNT 14.5 X10'3 (4.5-11.0)
[2018-02-06] MEDS: dexmedetomidin/NS 400mcg/100ml 100 ML IV SCH ×4 (03:19→22:09)
[2018-02-06 03:46] LABS: ABG BASE EXCESS -2.5 mmol/L (-2.0-3.0); ABG HCO3 22.3 mmol/L (22.0-26.0); ABG OXYGEN SATURATION 94.2 % (95-98); ABG PCO2 (T) 38.7 mmHg (35.0-48.0); ABG PO2 (T) 73.2 mmHg (83-108); ALLEN'S TEST Positive; FCOHb 0.3 % (0.5-1.5); FMetHb 0.3 % (0.3-1.12); FO2Hb 93.6 % (94-100); MINUTE VOLUME 8 L/min; PATIENT TEMPERATURE 37.1; PEEP 5 cm H2O; RESPIRATORY RATE 12 b/min; RESPIRATORY RATE (OBSERVED) 14 b/min; TIDAL VOLUME 700 mL; TOTAL HEMOGLOBIN 8.7 G/dl (14.0-18.0)
[2018-02-06] MEDS: FENTANYL-0.9 % NACL/PF 100 ML IV PRN (05:53)
[2018-02-06] MEDS: K, MAG and/or Phos replacement - Verify level? MC SCH (07:45)
[2018-02-06] MEDS: sodium chloride 0.45% 1,000 ML IV SCH (07:45)
[2018-02-06] MEDS: nystatin 500,000 unit/5ML UD oral suspension PO SCH ×3 (07:46→20:57)
[2018-02-06] MEDS: folic acid inj. 2 MG, thiamine inj. 100 MG, MVI, adult No.4 with vit. K 10 ML in dextro... IV SCH ×4 (07:50)
[2018-02-06] MEDS ORDERED: CADD PCA waste documentation MC PRN (10:55)
[2018-02-06] MEDS ORDERED: racepinephrine 11.25mg/0.5ml nebule NEB PRN (10:55)
[2018-02-06] MEDS ORDERED: naloxone 0.4 mg/ml inj IV PRN (10:55)
[2018-02-06] MEDS ORDERED: ipratropium/albuterol 3ml nebule NEB PRN (10:55)
[2018-02-06] MEDS: HYDROmorphone/NS 1 mg/ml CADD 50 ML IV SCH ×3 (13:00→19:00)
[2018-02-06] MEDS: nicotine 14mg patch - 24hr TD SCH (14:44)
[2018-02-06] MEDS: octreotide inj. 1,250 MCG in normal saline 250ml IV soln 243.75 ML IV SCH (15:36)
[2018-02-06] MEDS: ipratropium/albuterol 3ml nebule NEB SCH ×2 (16:20→20:15)
[2018-02-06] MEDS: insulin glargine (Lantus) pen - multi-dose SQ SCH (20:57)
[2018-02-07] VITALS (18 sets, daily range): BP systolic 95–137; BP diastolic 62–90
[2018-02-07] MEDS: sodium chloride 0.45% 1,000 ML IV SCH ×3 (00:36→15:06)
[2018-02-07] MEDS: pantoprazole 40MG/NS 100ML BAG 100 ML IV SCH ×3 (00:36→04:14)
[2018-02-07] MEDS: ipratropium/albuterol 3ml nebule NEB SCH ×4 (02:07→20:51)
[2018-02-07] MEDS: dexmedetomidin/NS 400mcg/100ml 100 ML IV SCH (02:55)
[2018-02-07 03:01] LABS: BASOPHILS % (AUTO) 0.5 % (0-1); EOSINOPHILS # (AUTO) 0.2 X10'3 (0-0.9); EOSINOPHILS % (AUTO) 1.8 % (0-6); HEMATOCRIT 24.6 % (42.0-52.0); HEMOGLOBIN 8.2 g/dl (14.0-17.9); LYMPHOCYTES # (AUTO) 1.6 X10'3 (1.1-4.8); LYMPHOCYTES % (AUTO) 16.2 % (21-51); MEAN CORPUSCULAR HEMOGLOBIN 30.7 PG (27.0-31.0); MEAN CORPUSCULAR HGB CONC 33.5 % (33.0-36.5); MEAN CORPUSCULAR VOLUME 91.8 FL (78-98); MEAN PLATELET VOLUME 8.2 FL (7.4-10.4); MONOCYTES # (AUTO) 0.5 X10'3 (0-0.9); MONOCYTES % (AUTO) 5.7 % (2-12); NEUTROPHILS # (AUTO) 7.2 X10'3 (1.8-7.7); NEUTROPHILS % (AUTO) 75.8 % (42-75); PLATELET COUNT 211 X10'3 (140-440); RED BLOOD COUNT 2.67 X10'6 (4.70-6.10); RED CELL DISTRIBUTION WIDTH 15.7 % (11.5-14.5); WHITE BLOOD COUNT 9.6 X10'3 (4.5-11.0)
[2018-02-07 03:04] LABS: PARTIAL THROMBOPLASTIN TIME 26 SECONDS (22-32); PROTHROMBIN TIME 10.6 SECONDS (9.0-12.0)
[2018-02-07 03:10] LABS: ANION GAP 5 (8-16); BLOOD UREA NITROGEN 11 MG/DL (7-18); BUN/CREATININE RATIO 11.7 (5.4-32.0); CALCIUM 7.9 MG/DL (8.5-10.1); CHLORIDE 113 MMOL/L (99-107); CREATININE 0.94 MG/DL (0.60-1.10); GLUCOSE 122 MG/DL (70-104); PHOSPHORUS 2.9 MG/DL (2.3-4.5); POTASSIUM 3.7 MMOL/L (3.5-5.1); SODIUM 144 MMOL/L (135-145); TOTAL CARBON DIOXIDE 25.8 MMOL/L (24-32); eGFR 83 ML/MIN
[2018-02-07 03:11] LABS: ALANINE AMINOTRANSFERASE 23 U/L (12-78); ALBUMIN 1.8 G/DL (3.4-5.0); ALBUMIN/GLOBULIN RATIO 0.6 (1.1-1.5); ALKALINE PHOSPHATASE 46 IU/L (46-116); ASPARTATE AMINO TRANSFERASE 14 U/L (10-37); BILIRUBIN,TOTAL 0.4 MG/DL (0.1-1.0); MAGNESIUM 1.8 MG/DL (1.5-2.4); TOTAL PROTEIN 4.7 G/DL (6.4-8.2)
[2018-02-07] MEDS: nicotine 14mg patch - 24hr TD SCH (07:48)
[2018-02-07] MEDS: nystatin 500,000 unit/5ML UD oral suspension PO SCH ×3 (07:48→20:18)
[2018-02-07] MEDS: folic acid inj. 2 MG, thiamine inj. 100 MG, MVI, adult No.4 with vit. K 10 ML in dextro... IV SCH ×4 (07:51)
[2018-02-07] MEDS: K, MAG and/or Phos replacement - Verify level? MC SCH (08:00)
[2018-02-07] MEDS: HYDROmorphone/NS 1 mg/ml CADD 50 ML IV SCH ×6 (09:29→23:00)
[2018-02-07] MEDS ORDERED: pantoprazole 40mg Tablet.DR PO SCH (09:55)
[2018-02-07] MEDS: pantoprazole 40mg Tablet.DR PO SCH (20:18)
[2018-02-07] MEDS: insulin glargine (Lantus) pen - multi-dose SQ SCH (20:22)
[2018-02-08] MEDS: HYDROmorphone/NS 1 mg/ml CADD 50 ML IV SCH ×12 (01:00→23:00)
[2018-02-08 02:00] VITALS: BP 135/86
[2018-02-08] MEDS: ipratropium/albuterol 3ml nebule NEB SCH ×4 (02:38→20:38)
[2018-02-08] MEDS: sodium chloride 0.45% 1,000 ML IV SCH ×4 (03:41→23:12)
[2018-02-08 06:00] VITALS: BP 136/85
[2018-02-08 06:00] LABS: BASOPHILS % (AUTO) 0.3 % (0-1); EOSINOPHILS # (AUTO) 0.2 X10'3 (0-0.9); HEMATOCRIT 25.7 % (42.0-52.0); HEMOGLOBIN 8.6 g/dl (14.0-17.9); LYMPHOCYTES # (AUTO) 1.2 X10'3 (1.1-4.8); LYMPHOCYTES % (AUTO) 14.1 % (21-51); MEAN CORPUSCULAR HEMOGLOBIN 30.4 PG (27.0-31.0); MEAN CORPUSCULAR HGB CONC 33.4 % (33.0-36.5); MEAN CORPUSCULAR VOLUME 90.9 FL (78-98); MEAN PLATELET VOLUME 7.4 FL (7.4-10.4); MONOCYTES # (AUTO) 0.6 X10'3 (0-0.9); MONOCYTES % (AUTO) 6.8 % (2-12); NEUTROPHILS # (AUTO) 6.4 X10'3 (1.8-7.7); NEUTROPHILS % (AUTO) 76.8 % (42-75); PLATELET COUNT 285 X10'3 (140-440); RED BLOOD COUNT 2.82 X10'6 (4.70-6.10); RED CELL DISTRIBUTION WIDTH 15.7 % (11.5-14.5); WHITE BLOOD COUNT 8.3 X10'3 (4.5-11.0)
[2018-02-08 06:22] LABS: ALANINE AMINOTRANSFERASE 18 U/L (12-78); ALBUMIN 1.8 G/DL (3.4-5.0); ALBUMIN/GLOBULIN RATIO 0.6 (1.1-1.5); ALKALINE PHOSPHATASE 48 IU/L (46-116); ANION GAP 8 (8-16); ASPARTATE AMINO TRANSFERASE 13 U/L (10-37); BILIRUBIN,TOTAL 0.3 MG/DL (0.1-1.0); BLOOD UREA NITROGEN 6 MG/DL (7-18); BUN/CREATININE RATIO 7.5 (5.4-32.0); CALCIUM 7.6 MG/DL (8.5-10.1); CHLORIDE 108 MMOL/L (99-107); GLUCOSE 119 MG/DL (70-104); MAGNESIUM 1.7 MG/DL (1.5-2.4); POTASSIUM 3.2 MMOL/L (3.5-5.1); SODIUM 142 MMOL/L (135-145); TOTAL CARBON DIOXIDE 26.1 MMOL/L (24-32); TOTAL PROTEIN 4.9 G/DL (6.4-8.2); eGFR > 90 ML/MIN
[2018-02-08] MEDS: folic acid 1mg tablet PO SCH (07:58)
[2018-02-08] MEDS: thiamine 100mg tablet PO SCH (07:58)
[2018-02-08] MEDS: nystatin 500,000 unit/5ML UD oral suspension PO SCH ×3 (07:58→20:22)
[2018-02-08] MEDS: pantoprazole 40mg Tablet.DR PO SCH ×2 (07:58→20:23)
[2018-02-08] MEDS: nicotine 14mg patch - 24hr TD SCH (07:59)
[2018-02-08] MEDS: K, MAG and/or Phos replacement - Verify level? MC SCH (08:13)
[2018-02-08] MEDS: aripiprazole 5mg tablet PO SCH (08:54)
[2018-02-08 11:00] VITALS: BP 155/85
[2018-02-08] MEDS ORDERED: potassium Cl 40MEQ/NS 500ml 500 ML IV PRN (14:00)
[2018-02-08 15:00] VITALS: BP 153/92
[2018-02-08 18:00] VITALS: BP 157/88
[2018-02-08] MEDS: insulin glargine (Lantus) pen - multi-dose SQ SCH (21:00)
[2018-02-08 22:00] VITALS: BP 151/90
[2018-02-09] MEDS: HYDROmorphone/NS 1 mg/ml CADD 50 ML IV SCH ×12 (01:00→23:00)
[2018-02-09 02:00] VITALS: BP 165/96
[2018-02-09] MEDS: ipratropium/albuterol 3ml nebule NEB SCH ×4 (03:00→19:00)
[2018-02-09] MEDS ORDERED: LORazepam 2 mg/ml vial IV PRN (03:45)
[2018-02-09] MEDS ORDERED: haloperidol 5mg tablet PO PRN (03:45)
[2018-02-09] MEDS ORDERED: haloperidol lactate 5mg/ml inj IM PRN (03:45)
[2018-02-09] MEDS ORDERED: thiamine 100mg/ml 2ml inj. IV ONE (03:45)
[2018-02-09] MEDS ORDERED: dextrose 50%-water 50ml dispensing syringe IV PRN (03:45)
[2018-02-09] MEDS: LORazepam 1 MG tablet PO PRN ×2 (04:09→20:11)
[2018-02-09 05:16] LABS: BASOPHILS % (AUTO) 0.2 % (0-1); EOSINOPHILS # (AUTO) 0.2 X10'3 (0-0.9); EOSINOPHILS % (AUTO) 2.4 % (0-6); HEMATOCRIT 26.7 % (42.0-52.0); HEMOGLOBIN 8.8 g/dl (14.0-17.9); LYMPHOCYTES # (AUTO) 0.7 X10'3 (1.1-4.8); LYMPHOCYTES % (AUTO) 9.8 % (21-51); MEAN CORPUSCULAR HEMOGLOBIN 29.5 PG (27.0-31.0); MEAN CORPUSCULAR HGB CONC 32.8 % (33.0-36.5); MEAN PLATELET VOLUME 6.8 FL (7.4-10.4); MONOCYTES # (AUTO) 0.5 X10'3 (0-0.9); MONOCYTES % (AUTO) 7.4 % (2-12); NEUTROPHILS # (AUTO) 5.5 X10'3 (1.8-7.7); NEUTROPHILS % (AUTO) 80.2 % (42-75); PLATELET COUNT 341 X10'3 (140-440); RED BLOOD COUNT 2.97 X10'6 (4.70-6.10); RED CELL DISTRIBUTION WIDTH 15.5 % (11.5-14.5); WHITE BLOOD COUNT 6.8 X10'3 (4.5-11.0)
[2018-02-09 06:00] VITALS: BP 102/55
[2018-02-09 06:12] LABS: ANION GAP 8 (8-16); BLOOD UREA NITROGEN 3 MG/DL (7-18); CHLORIDE 107 MMOL/L (99-107); CREATININE 0.78 MG/DL (0.60-1.10); GLUCOSE 131 MG/DL (70-104); SODIUM 142 MMOL/L (135-145); TOTAL CARBON DIOXIDE 27.5 MMOL/L (24-32)
[2018-02-09 06:13] LABS: ALANINE AMINOTRANSFERASE 19 U/L (12-78); ALBUMIN 1.9 G/DL (3.4-5.0); ALBUMIN/GLOBULIN RATIO 0.6 (1.1-1.5); ALKALINE PHOSPHATASE 52 IU/L (46-116); ASPARTATE AMINO TRANSFERASE 16 U/L (10-37); BILIRUBIN,TOTAL 0.5 MG/DL (0.1-1.0); CALCIUM 7.8 MG/DL (8.5-10.1); MAGNESIUM 1.7 MG/DL (1.5-2.4); TOTAL PROTEIN 5.2 G/DL (6.4-8.2); eGFR > 90 ML/MIN
[2018-02-09 06:16] LABS: POTASSIUM 2.9 MMOL/L (3.5-5.1)
[2018-02-09 06:19] LABS: BUN/CREATININE RATIO 3.8 (5.4-32.0)
[2018-02-09] MEDS ORDERED: magnesium 2GM in 50ml NS 50 ML IV PRN (07:35)
[2018-02-09] MEDS ORDERED: potassium Cl 20 mEq SR tablet PO PRN (07:35)
[2018-02-09] MEDS ORDERED: potassium Cl 40MEQ/NS 500ml 500 ML IV PRN ×2 (07:35)
[2018-02-09] MEDS ORDERED: magnesium 4gm in 100ml NS 100 ML IV PRN (07:35)
[2018-02-09] MEDS ORDERED: magnesium Cl slow-release 64mg tablet PO PRN (07:35)
[2018-02-09] MEDS: nystatin 500,000 unit/5ML UD oral suspension PO SCH ×3 (08:00→20:11)
[2018-02-09] MEDS: potassium Cl 20 mEq SR tablet PO PRN ×3 (08:40→17:44)
[2018-02-09] MEDS: aripiprazole 5mg tablet PO SCH (08:40)
[2018-02-09] MEDS: thiamine 100mg tablet PO SCH (08:40)
[2018-02-09] MEDS: folic acid 1mg tablet PO SCH (08:40)
[2018-02-09] MEDS: pantoprazole 40mg Tablet.DR PO SCH ×2 (08:41→20:11)
[2018-02-09] MEDS: nicotine 14mg patch - 24hr TD SCH (08:41)
[2018-02-09] MEDS: K, MAG and/or Phos replacement - Verify level? MC SCH (08:45)
[2018-02-09] MEDS: sodium chloride 0.45% 1,000 ML IV SCH (09:51)
[2018-02-09 11:00] VITALS: BP 134/71
[2018-02-09] MEDS ORDERED: furosemide 40mg/4ml inj IV ONE (12:05)
[2018-02-09 15:00] VITALS: BP 135/84
[2018-02-09] MEDS: cefepime inj. 1 GM in dextrose 5%-water 50ml 50 ML IV SCH (16:42)
[2018-02-09 18:00] VITALS: BP 121/70
[2018-02-09] MEDS ORDERED: vancomycin/NS 1 GM ADD-VANTAGE 250 ML IV SCH (20:00)
[2018-02-09] MEDS: insulin glargine (Lantus) pen - multi-dose SQ SCH (21:00)
[2018-02-09 22:00] VITALS: BP 112/63
[2018-02-10] MEDS: cefepime inj. 1 GM in dextrose 5%-water 50ml 50 ML IV SCH ×3 (00:33→15:57)
[2018-02-10] MEDS: HYDROmorphone/NS 1 mg/ml CADD 50 ML IV SCH ×5 (01:00→08:59)
[2018-02-10 02:00] VITALS: BP 132/78
[2018-02-10 06:00] VITALS: BP 142/79
[2018-02-10 06:00] LABS: BASOPHILS % (AUTO) 0.3 % (0-1); EOSINOPHILS # (AUTO) 0.2 X10'3 (0-0.9); EOSINOPHILS % (AUTO) 2.4 % (0-6); HEMATOCRIT 25.4 % (42.0-52.0); HEMOGLOBIN 8.4 g/dl (14.0-17.9); LYMPHOCYTES # (AUTO) 1.3 X10'3 (1.1-4.8); LYMPHOCYTES % (AUTO) 18.4 % (21-51); MEAN CORPUSCULAR HEMOGLOBIN 29.4 PG (27.0-31.0); MEAN CORPUSCULAR HGB CONC 33.2 % (33.0-36.5); MEAN CORPUSCULAR VOLUME 88.8 FL (78-98); MEAN PLATELET VOLUME 7.1 FL (7.4-10.4); MONOCYTES # (AUTO) 0.7 X10'3 (0-0.9); MONOCYTES % (AUTO) 9.5 % (2-12); NEUTROPHILS # (AUTO) 5.1 X10'3 (1.8-7.7); NEUTROPHILS % (AUTO) 69.4 % (42-75); PLATELET COUNT 345 X10'3 (140-440); RED BLOOD COUNT 2.87 X10'6 (4.70-6.10); RED CELL DISTRIBUTION WIDTH 15.8 % (11.5-14.5); WHITE BLOOD COUNT 7.3 X10'3 (4.5-11.0)
[2018-02-10 06:17] LABS: ALANINE AMINOTRANSFERASE 18 U/L (12-78); ALBUMIN 1.8 G/DL (3.4-5.0); ALBUMIN/GLOBULIN RATIO 0.6 (1.1-1.5); ALKALINE PHOSPHATASE 43 IU/L (46-116); ANION GAP 6 (8-16); ASPARTATE AMINO TRANSFERASE 14 U/L (10-37); BILIRUBIN,TOTAL 0.5 MG/DL (0.1-1.0); BLOOD UREA NITROGEN 4 MG/DL (7-18); BUN/CREATININE RATIO 5.3 (5.4-32.0); CALCIUM 7.9 MG/DL (8.5-10.1); CHLORIDE 108 MMOL/L (99-107); CREATININE 0.76 MG/DL (0.60-1.10); GLUCOSE 106 MG/DL (70-104); MAGNESIUM 1.7 MG/DL (1.5-2.4); PHOSPHORUS 3.4 MG/DL (2.3-4.5); POTASSIUM 3.7 MMOL/L (3.5-5.1); SODIUM 143 MMOL/L (135-145); eGFR > 90 ML/MIN
[2018-02-10] MEDS: aripiprazole 5mg tablet PO SCH (07:52)
[2018-02-10] MEDS: nystatin 500,000 unit/5ML UD oral suspension PO SCH ×3 (07:53→20:57)
[2018-02-10] MEDS: folic acid 1mg tablet PO SCH (07:53)
[2018-02-10] MEDS: pantoprazole 40mg Tablet.DR PO SCH ×2 (07:54→20:54)
[2018-02-10] MEDS: thiamine 100mg tablet PO SCH (07:54)
[2018-02-10] MEDS: nicotine 14mg patch - 24hr TD SCH (07:55)
[2018-02-10] MEDS: LORazepam 1 MG tablet PO PRN (07:59)
[2018-02-10] MEDS: K, MAG and/or Phos replacement - Verify level? MC SCH (08:00)
[2018-02-10] MEDS: ipratropium/albuterol 3ml nebule NEB SCH ×4 (08:39→19:43)
[2018-02-10] MEDS ORDERED: HYDROcodone/acetaminophen 10/325mg tab PO PRN (10:25)
[2018-02-10] MEDS: HYDROcodone/acetaminophen 10/325mg tab PO PRN ×3 (10:56→20:55)
[2018-02-10 11:00] VITALS: BP 139/73
[2018-02-10] MEDS ORDERED: chlordiazePOXIDE 25mg capsule PO ONE (12:07)
[2018-02-10] MEDS ORDERED: VANCOMYCIN LEVEL IV NR (12:30)
[2018-02-10 15:00] VITALS: BP 126/72
[2018-02-10] MEDS: chlordiazePOXIDE 25mg capsule PO SCH (16:04)
[2018-02-10 19:00] VITALS: BP 139/67
[2018-02-10] MEDS ORDERED: VANCOMYCIN LEVEL IV ONE (20:30)
[2018-02-10] MEDS: insulin glargine (Lantus) pen - multi-dose SQ SCH (21:00)
[2018-02-10 22:00] VITALS: BP 124/74
[2018-02-11] MEDS: cefepime inj. 1 GM in dextrose 5%-water 50ml 50 ML IV SCH ×3 (00:15→16:30)
[2018-02-11] MEDS: chlordiazePOXIDE 25mg capsule PO SCH ×3 (00:15→16:30)
[2018-02-11 02:00] VITALS: BP 115/74
[2018-02-11 05:21] LABS: BASOPHILS % (AUTO) 0.2 % (0-1); EOSINOPHILS # (AUTO) 0.3 X10'3 (0-0.9); EOSINOPHILS % (AUTO) 3.6 % (0-6); HEMATOCRIT 26.4 % (42.0-52.0); HEMOGLOBIN 8.7 g/dl (14.0-17.9); LYMPHOCYTES # (AUTO) 1.7 X10'3 (1.1-4.8); LYMPHOCYTES % (AUTO) 23.2 % (21-51); MEAN CORPUSCULAR HEMOGLOBIN 29.2 PG (27.0-31.0); MEAN CORPUSCULAR HGB CONC 32.8 % (33.0-36.5); MEAN CORPUSCULAR VOLUME 89.1 FL (78-98); MONOCYTES # (AUTO) 0.6 X10'3 (0-0.9); MONOCYTES % (AUTO) 8.8 % (2-12); NEUTROPHILS # (AUTO) 4.7 X10'3 (1.8-7.7); NEUTROPHILS % (AUTO) 64.2 % (42-75); PLATELET COUNT 363 X10'3 (140-440); RED BLOOD COUNT 2.97 X10'6 (4.70-6.10); RED CELL DISTRIBUTION WIDTH 16.2 % (11.5-14.5); WHITE BLOOD COUNT 7.4 X10'3 (4.5-11.0)
[2018-02-11 05:43] LABS: ANION GAP 5 (8-16); BLOOD UREA NITROGEN 9 MG/DL (7-18); BUN/CREATININE RATIO 10.2 (5.4-32.0); CALCIUM 8.1 MG/DL (8.5-10.1); CHLORIDE 108 MMOL/L (99-107); CREATININE 0.88 MG/DL (0.60-1.10); GLUCOSE 104 MG/DL (70-104); MAGNESIUM 1.9 MG/DL (1.5-2.4); PHOSPHORUS 4.3 MG/DL (2.3-4.5); POTASSIUM 3.8 MMOL/L (3.5-5.1); SODIUM 142 MMOL/L (135-145); TOTAL CARBON DIOXIDE 29.5 MMOL/L (24-32); eGFR 89 ML/MIN
[2018-02-11 05:44] LABS: ALANINE AMINOTRANSFERASE 17 U/L (12-78); ALBUMIN 1.9 G/DL (3.4-5.0); ALBUMIN/GLOBULIN RATIO 0.5 (1.1-1.5); ALKALINE PHOSPHATASE 48 IU/L (46-116); ASPARTATE AMINO TRANSFERASE 16 U/L (10-37); BILIRUBIN,TOTAL 0.3 MG/DL (0.1-1.0); TOTAL PROTEIN 5.5 G/DL (6.4-8.2)
[2018-02-11 06:00] VITALS: BP 104/73
[2018-02-11] MEDS: ipratropium/albuterol 3ml nebule NEB SCH ×4 (07:23→19:36)
[2018-02-11] MEDS: K, MAG and/or Phos replacement - Verify level? MC SCH (08:00)
[2018-02-11] MEDS: nystatin 500,000 unit/5ML UD oral suspension PO SCH ×4 (08:00→20:25)
[2018-02-11] MEDS: HYDROcodone/acetaminophen 10/325mg tab PO PRN ×3 (08:19→16:30)
[2018-02-11] MEDS: thiamine 100mg tablet PO SCH (08:19)
[2018-02-11] MEDS: folic acid 1mg tablet PO SCH (08:20)
[2018-02-11] MEDS: pantoprazole 40mg Tablet.DR PO SCH ×2 (08:20→20:24)
[2018-02-11] MEDS: nicotine 14mg patch - 24hr TD SCH (08:21)
[2018-02-11] MEDS: aripiprazole 5mg tablet PO SCH (08:24)
[2018-02-11 11:00] VITALS: BP 151/93
[2018-02-11 15:00] VITALS: BP 122/77
[2018-02-11 19:00] VITALS: BP 136/81
[2018-02-11] MEDS: LORazepam 1 MG tablet PO PRN (20:23)
[2018-02-11] MEDS: lactobacillus rhamnosus 10,000 MMU CELLS/CAPSULE PO SCH (20:24)
[2018-02-11] MEDS: docusate sod 100mg capsule PO SCH (20:24)
[2018-02-11] MEDS: insulin glargine (Lantus) pen - multi-dose SQ SCH (21:00)
[2018-02-11 23:00] VITALS: BP 121/74
[2018-02-12] MEDS: chlordiazePOXIDE 25mg capsule PO SCH ×3 (00:11→16:09)
[2018-02-12] MEDS: cefepime inj. 1 GM in dextrose 5%-water 50ml 50 ML IV SCH ×2 (00:13→08:26)
[2018-02-12 03:00] VITALS: BP 124/78
[2018-02-12 05:34] LABS: BASOPHILS % (AUTO) 0.5 % (0-1); EOSINOPHILS # (AUTO) 0.3 X10'3 (0-0.9); HEMATOCRIT 25.2 % (42.0-52.0); HEMOGLOBIN 8.4 g/dl (14.0-17.9); LYMPHOCYTES # (AUTO) 1.7 X10'3 (1.1-4.8); LYMPHOCYTES % (AUTO) 21.2 % (21-51); MEAN CORPUSCULAR HEMOGLOBIN 29.4 PG (27.0-31.0); MEAN CORPUSCULAR HGB CONC 33.4 % (33.0-36.5); MEAN CORPUSCULAR VOLUME 88.1 FL (78-98); MEAN PLATELET VOLUME 7.2 FL (7.4-10.4); MONOCYTES # (AUTO) 0.5 X10'3 (0-0.9); MONOCYTES % (AUTO) 6.8 % (2-12); NEUTROPHILS # (AUTO) 5.3 X10'3 (1.8-7.7); NEUTROPHILS % (AUTO) 67.5 % (42-75); PLATELET COUNT 383 X10'3 (140-440); RED BLOOD COUNT 2.86 X10'6 (4.70-6.10); RED CELL DISTRIBUTION WIDTH 16.4 % (11.5-14.5); WHITE BLOOD COUNT 7.8 X10'3 (4.5-11.0)
[2018-02-12 06:00] VITALS: BP 136/76
[2018-02-12 06:04] LABS: ALANINE AMINOTRANSFERASE 17 U/L (12-78); ALBUMIN 1.8 G/DL (3.4-5.0); ALBUMIN/GLOBULIN RATIO 0.6 (1.1-1.5); ALKALINE PHOSPHATASE 47 IU/L (46-116); ANION GAP 7 (8-16); ASPARTATE AMINO TRANSFERASE 15 U/L (10-37); BILIRUBIN,TOTAL 0.3 MG/DL (0.1-1.0); BLOOD UREA NITROGEN 10 MG/DL (7-18); BUN/CREATININE RATIO 10.2 (5.4-32.0); CALCIUM 7.9 MG/DL (8.5-10.1); CHLORIDE 107 MMOL/L (99-107); CREATININE 0.98 MG/DL (0.60-1.10); GLUCOSE 119 MG/DL (70-104); MAGNESIUM 1.9 MG/DL (1.5-2.4); PHOSPHORUS 3.7 MG/DL (2.3-4.5); POTASSIUM 3.6 MMOL/L (3.5-5.1); SODIUM 142 MMOL/L (135-145); TOTAL CARBON DIOXIDE 28.4 MMOL/L (24-32); eGFR 79 ML/MIN
[2018-02-12] MEDS: ondansetron/PF 4mg/2ml inj IV PRN (06:56)
[2018-02-12] MEDS: ipratropium/albuterol 3ml nebule NEB SCH ×4 (07:58→19:35)
[2018-02-12] MEDS: K, MAG and/or Phos replacement - Verify level? MC SCH (08:00)
[2018-02-12] MEDS: nystatin 500,000 unit/5ML UD oral suspension PO SCH ×3 (08:00→20:52)
[2018-02-12] MEDS: HYDROcodone/acetaminophen 10/325mg tab PO PRN ×3 (08:26→20:52)
[2018-02-12] MEDS: thiamine 100mg tablet PO SCH (08:26)
[2018-02-12] MEDS: pantoprazole 40mg Tablet.DR PO SCH ×2 (08:27→20:45)
[2018-02-12] MEDS: nicotine 14mg patch - 24hr TD SCH (08:27)
[2018-02-12] MEDS: docusate sod 100mg capsule PO SCH ×2 (08:27→20:44)
[2018-02-12] MEDS: lactobacillus rhamnosus 10,000 MMU CELLS/CAPSULE PO SCH ×2 (08:27→20:45)
[2018-02-12] MEDS: folic acid 1mg tablet PO SCH (08:27)
[2018-02-12] MEDS: aripiprazole 5mg tablet PO SCH (08:29)
[2018-02-12 11:00] VITALS: BP 128/78
[2018-02-12 15:00] VITALS: BP 119/92
[2018-02-12] MEDS: cefepime inj. 1 GM in normal saline 100ml IV soln 100 ML IV SCH (16:10)
[2018-02-12 19:00] VITALS: BP 123/77
[2018-02-12] MEDS: insulin glargine (Lantus) pen - multi-dose SQ SCH (21:00)
[2018-02-12 23:00] VITALS: BP 110/55
[2018-02-13] MEDS: chlordiazePOXIDE 25mg capsule PO SCH ×3 (00:09→16:27)
[2018-02-13] MEDS: cefepime inj. 1 GM in normal saline 100ml IV soln 100 ML IV SCH ×3 (00:11→16:27)
[2018-02-13 03:00] VITALS: BP 132/83
[2018-02-13 05:27] LABS: BASOPHILS % (AUTO) 0.4 % (0-1); EOSINOPHILS # (AUTO) 0.4 X10'3 (0-0.9); EOSINOPHILS % (AUTO) 4.4 % (0-6); HEMATOCRIT 26.4 % (42.0-52.0); HEMOGLOBIN 8.5 g/dl (14.0-17.9); LYMPHOCYTES # (AUTO) 1.5 X10'3 (1.1-4.8); LYMPHOCYTES % (AUTO) 19.3 % (21-51); MEAN CORPUSCULAR HEMOGLOBIN 28.7 PG (27.0-31.0); MEAN CORPUSCULAR HGB CONC 32.3 % (33.0-36.5); MEAN CORPUSCULAR VOLUME 88.9 FL (78-98); MEAN PLATELET VOLUME 6.9 FL (7.4-10.4); MONOCYTES # (AUTO) 0.6 X10'3 (0-0.9); MONOCYTES % (AUTO) 7.3 % (2-12); NEUTROPHILS # (AUTO) 5.5 X10'3 (1.8-7.7); NEUTROPHILS % (AUTO) 68.6 % (42-75); PLATELET COUNT 450 X10'3 (140-440); RED BLOOD COUNT 2.97 X10'6 (4.70-6.10); RED CELL DISTRIBUTION WIDTH 16.6 % (11.5-14.5)
[2018-02-13 05:48] LABS: ALANINE AMINOTRANSFERASE 16 U/L (12-78); ALBUMIN 1.9 G/DL (3.4-5.0); ALBUMIN/GLOBULIN RATIO 0.6 (1.1-1.5); ALKALINE PHOSPHATASE 52 IU/L (46-116); ANION GAP 6 (8-16); ASPARTATE AMINO TRANSFERASE 15 U/L (10-37); BILIRUBIN,TOTAL 0.3 MG/DL (0.1-1.0); BLOOD UREA NITROGEN 10 MG/DL (7-18); BUN/CREATININE RATIO 10.2 (5.4-32.0); CHLORIDE 107 MMOL/L (99-107); CREATININE 0.98 MG/DL (0.60-1.10); GLUCOSE 124 MG/DL (70-104); MAGNESIUM 1.9 MG/DL (1.5-2.4); PHOSPHORUS 3.8 MG/DL (2.3-4.5); POTASSIUM 3.9 MMOL/L (3.5-5.1); SODIUM 142 MMOL/L (135-145); TOTAL CARBON DIOXIDE 29.1 MMOL/L (24-32); TOTAL PROTEIN 5.2 G/DL (6.4-8.2); eGFR 79 ML/MIN
[2018-02-13 07:00] VITALS: BP 141/88
[2018-02-13] MEDS: K, MAG and/or Phos replacement - Verify level? MC SCH (08:00)
[2018-02-13] MEDS: ipratropium/albuterol 3ml nebule NEB SCH ×4 (08:11→19:43)
[2018-02-13] MEDS: aripiprazole 5mg tablet PO SCH (08:13)
[2018-02-13] MEDS: nystatin 500,000 unit/5ML UD oral suspension PO SCH ×3 (08:13→21:33)
[2018-02-13] MEDS: docusate sod 100mg capsule PO SCH ×2 (08:13→19:22)
[2018-02-13] MEDS: nicotine 14mg patch - 24hr TD SCH (08:13)
[2018-02-13] MEDS: lactobacillus rhamnosus 10,000 MMU CELLS/CAPSULE PO SCH ×2 (08:14→19:22)
[2018-02-13] MEDS: folic acid 1mg tablet PO SCH (08:14)
[2018-02-13] MEDS: thiamine 100mg tablet PO SCH (08:14)
[2018-02-13] MEDS: pantoprazole 40mg Tablet.DR PO SCH ×2 (08:14→19:22)
[2018-02-13] MEDS: HYDROcodone/acetaminophen 10/325mg tab PO PRN ×4 (08:32→21:35)
[2018-02-13 11:00] VITALS: BP 135/74
[2018-02-13 15:00] VITALS: BP 127/71
[2018-02-13 18:00] VITALS: BP 149/89
[2018-02-13] MEDS: ondansetron/PF 4mg/2ml inj IV PRN (19:22)
[2018-02-13] MEDS: insulin glargine (Lantus) pen - multi-dose SQ SCH (21:00)
[2018-02-13 23:00] VITALS: BP 143/80
[2018-02-13] MEDS ORDERED: temazepam 15mg capsule PO PRN (23:55)
[2018-02-14] MEDS: chlordiazePOXIDE 25mg capsule PO SCH ×3 (00:14→16:11)
[2018-02-14] MEDS: cefepime inj. 1 GM in normal saline 100ml IV soln 100 ML IV SCH ×3 (00:17→16:19)
[2018-02-14] MEDS: HYDROcodone/acetaminophen 10/325mg tab PO PRN ×3 (01:38→16:19)
[2018-02-14] MEDS: ondansetron/PF 4mg/2ml inj IV PRN (02:48)
[2018-02-14 03:00] VITALS: BP 138/82
[2018-02-14 05:22] LABS: BASOPHILS # (AUTO) 0.1 X10'3 (0-0.2); BASOPHILS % (AUTO) 0.6 % (0-1); EOSINOPHILS # (AUTO) 0.4 X10'3 (0-0.9); EOSINOPHILS % (AUTO) 4.1 % (0-6); HEMATOCRIT 25.8 % (42.0-52.0); HEMOGLOBIN 8.4 g/dl (14.0-17.9); LYMPHOCYTES # (AUTO) 1.7 X10'3 (1.1-4.8); LYMPHOCYTES % (AUTO) 18.1 % (21-51); MEAN CORPUSCULAR HEMOGLOBIN 28.6 PG (27.0-31.0); MEAN CORPUSCULAR HGB CONC 32.6 % (33.0-36.5); MEAN CORPUSCULAR VOLUME 87.9 FL (78-98); MEAN PLATELET VOLUME 7.1 FL (7.4-10.4); MONOCYTES # (AUTO) 0.6 X10'3 (0-0.9); MONOCYTES % (AUTO) 6.4 % (2-12); NEUTROPHILS # (AUTO) 6.8 X10'3 (1.8-7.7); NEUTROPHILS % (AUTO) 70.8 % (42-75); PLATELET COUNT 426 X10'3 (140-440); RED BLOOD COUNT 2.93 X10'6 (4.70-6.10); RED CELL DISTRIBUTION WIDTH 16.7 % (11.5-14.5); WHITE BLOOD COUNT 9.6 X10'3 (4.5-11.0)
[2018-02-14 05:36] LABS: ALANINE AMINOTRANSFERASE 20 U/L (12-78); ALBUMIN/GLOBULIN RATIO 0.6 (1.1-1.5); ALKALINE PHOSPHATASE 64 IU/L (46-116); ANION GAP 5 (8-16); ASPARTATE AMINO TRANSFERASE 18 U/L (10-37); BILIRUBIN,TOTAL 0.3 MG/DL (0.1-1.0); BLOOD UREA NITROGEN 8 MG/DL (7-18); BUN/CREATININE RATIO 8.9 (5.4-32.0); CALCIUM 8.1 MG/DL (8.5-10.1); CHLORIDE 107 MMOL/L (99-107); GLUCOSE 114 MG/DL (70-104); MAGNESIUM 1.9 MG/DL (1.5-2.4); PHOSPHORUS 4.1 MG/DL (2.3-4.5); POTASSIUM 4.2 MMOL/L (3.5-5.1); SODIUM 142 MMOL/L (135-145); TOTAL CARBON DIOXIDE 30.1 MMOL/L (24-32); TOTAL PROTEIN 5.6 G/DL (6.4-8.2); eGFR 87 ML/MIN
[2018-02-14 07:00] VITALS: BP 115/68
[2018-02-14] MEDS: aripiprazole 5mg tablet PO SCH (08:00)
[2018-02-14] MEDS: K, MAG and/or Phos replacement - Verify level? MC SCH (08:00)
[2018-02-14] MEDS: ipratropium/albuterol 3ml nebule NEB SCH ×4 (08:09→19:59)
[2018-02-14] MEDS: folic acid 1mg tablet PO SCH (09:27)
[2018-02-14] MEDS: thiamine 100mg tablet PO SCH (09:28)
[2018-02-14] MEDS: lactobacillus rhamnosus 10,000 MMU CELLS/CAPSULE PO SCH ×2 (09:28→21:02)
[2018-02-14] MEDS: pantoprazole 40mg Tablet.DR PO SCH ×2 (09:29→21:02)
[2018-02-14] MEDS: docusate sod 100mg capsule PO SCH ×2 (09:29→21:02)
[2018-02-14] MEDS: nystatin 500,000 unit/5ML UD oral suspension PO SCH ×3 (09:40→21:02)
[2018-02-14] MEDS: nicotine 14mg patch - 24hr TD SCH (09:41)
[2018-02-14 11:00] VITALS: BP 145/93
[2018-02-14 15:00] VITALS: BP 132/63
[2018-02-14] MEDS ORDERED: PANT40TA4 PO (17:23)
[2018-02-14 18:00] VITALS: BP 148/79
[2018-02-14] MEDS: insulin glargine (Lantus) pen - multi-dose SQ SCH (21:00)
[2018-02-14 22:00] VITALS: BP 129/81
[2018-02-15 02:00] VITALS: BP 134/73
[2018-02-15] MEDS: HYDROcodone/acetaminophen 10/325mg tab PO PRN ×3 (02:36→11:34)
[2018-02-15 06:20] LABS: BASOPHILS % (AUTO) 0.1 % (0-1); EOSINOPHILS # (AUTO) 0.4 X10'3 (0-0.9); EOSINOPHILS % (AUTO) 3.4 % (0-6); HEMATOCRIT 27.8 % (42.0-52.0); LYMPHOCYTES # (AUTO) 1.3 X10'3 (1.1-4.8); LYMPHOCYTES % (AUTO) 11.4 % (21-51); MEAN CORPUSCULAR HEMOGLOBIN 28.5 PG (27.0-31.0); MEAN CORPUSCULAR HGB CONC 32.4 % (33.0-36.5); MEAN CORPUSCULAR VOLUME 88.1 FL (78-98); MEAN PLATELET VOLUME 7.2 FL (7.4-10.4); MONOCYTES # (AUTO) 0.5 X10'3 (0-0.9); MONOCYTES % (AUTO) 4.3 % (2-12); NEUTROPHILS % (AUTO) 80.8 % (42-75); PLATELET COUNT 488 X10'3 (140-440); RED BLOOD COUNT 3.16 X10'6 (4.70-6.10); RED CELL DISTRIBUTION WIDTH 16.8 % (11.5-14.5); WHITE BLOOD COUNT 11.1 X10'3 (4.5-11.0)
[2018-02-15 06:48] LABS: ALANINE AMINOTRANSFERASE 26 U/L (12-78); ALBUMIN 2.1 G/DL (3.4-5.0); ALBUMIN/GLOBULIN RATIO 0.6 (1.1-1.5); ALKALINE PHOSPHATASE 83 IU/L (46-116); ANION GAP 7 (8-16); ASPARTATE AMINO TRANSFERASE 22 U/L (10-37); BILIRUBIN,TOTAL 0.3 MG/DL (0.1-1.0); BLOOD UREA NITROGEN 8 MG/DL (7-18); BUN/CREATININE RATIO 9.1 (5.4-32.0); CALCIUM 8.4 MG/DL (8.5-10.1); CHLORIDE 106 MMOL/L (99-107); CREATININE 0.88 MG/DL (0.60-1.10); GLUCOSE 121 MG/DL (70-104); MAGNESIUM 1.9 MG/DL (1.5-2.4); PHOSPHORUS 3.9 MG/DL (2.3-4.5); POTASSIUM 4.1 MMOL/L (3.5-5.1); SODIUM 142 MMOL/L (135-145); TOTAL CARBON DIOXIDE 28.7 MMOL/L (24-32); TOTAL PROTEIN 5.7 G/DL (6.4-8.2); eGFR 89 ML/MIN
[2018-02-15 07:00] VITALS: BP 114/59
[2018-02-15] MEDS: lactobacillus rhamnosus 10,000 MMU CELLS/CAPSULE PO SCH (07:50)
[2018-02-15] MEDS: folic acid 1mg tablet PO SCH (07:50)
[2018-02-15] MEDS: aripiprazole 5mg tablet PO SCH (07:50)
[2018-02-15] MEDS: nystatin 500,000 unit/5ML UD oral suspension PO SCH (07:50)
[2018-02-15] MEDS: docusate sod 100mg capsule PO SCH (07:50)
[2018-02-15] MEDS: pantoprazole 40mg Tablet.DR PO SCH (07:50)
[2018-02-15] MEDS: thiamine 100mg tablet PO SCH (07:50)
[2018-02-15] MEDS: nicotine 14mg patch - 24hr TD SCH (07:51)
[2018-02-15] MEDS: K, MAG and/or Phos replacement - Verify level? MC SCH (08:00)
[2018-02-15] MEDS: ipratropium/albuterol 3ml nebule NEB SCH (08:01)
[2018-02-15 11:00] VITALS: BP 115/68
== END 2018-02-15 11:54 | disposition home or self-care (01) | DRG 220 ==
LOC: ER 12:24 → ICU 2S 17:28 → PCU 3S 02-07 14:39
PROVIDERS: ADMIT Internal Medicine Critical Care Medicine; ATTEND Internal Medicine Critical Care Medicine
PROC: 008Q0ZZ Division of Vagus Nerve, Open Approach (ICD-10-PCS; 2018-02-03)
PROC: 30233N1 Transfusion of Nonautologous Red Blood Cells into Peripheral Vein, Percutaneous Approach (ICD-10-PCS; 2018-02-03)
PROC: 0DQ70ZZ Repair Stomach, Pylorus, Open Approach (ICD-10-PCS; 2018-02-03)
PROC: 02HV33Z Insertion of Infusion Device into Superior Vena Cava, Percutaneous Approach (ICD-10-PCS; 2018-02-03)
PROC: 0BH17EZ Insertion of Endotracheal Airway into Trachea, Via Natural or Artificial Opening (ICD-10-PCS; 2018-02-03)
PROC: 5A1945Z Respiratory Ventilation, 24-96 Consecutive Hours (ICD-10-PCS; 2018-02-03)
PROC: 0W3P0ZZ Control Bleeding in Gastrointestinal Tract, Open Approach (ICD-10-PCS; 2018-02-03)
PROC: 0DJ08ZZ Inspection of Upper Intestinal Tract, Via Natural or Artificial Opening Endoscopic (ICD-10-PCS; 2018-02-03)
PROC: 0WJP0ZZ Inspection of Gastrointestinal Tract, Open Approach (ICD-10-PCS; principal; 2018-02-03 16:44)
DX: K26.4 Chronic or unspecified duodenal ulcer with hemorrhage (principal); J96.00 Acute respiratory failure, unspecified whether with hypoxia or hypercapnia; R57.1 Hypovolemic shock; J18.9 Pneumonia, unspecified organism; F10.239 Alcohol dependence with withdrawal, unspecified; F12.90 Cannabis use, unspecified, uncomplicated; F15.90 Other stimulant use, unspecified, uncomplicated; F17.210 Nicotine dependence, cigarettes, uncomplicated; F41.9 Anxiety disorder, unspecified; F31.9 Bipolar disorder, unspecified; Z60.2 Problems related to living alone; Z79.899 Other long term (current) drug therapy; Z56.0 Unemployment, unspecified
CPT/HCPCS: 36415; 36556; 36600; 43236; 71045; 80047; 80053; 80202; 80320; 82140; 82150; 82803; 82948; 83605; 83690; 83735; 84100; 84132; 84145; 85018; 85025; 85027; 85610; 85730; 86885; 86900; 86901; 86920; 87070; 93005; 94002; 94003; 94640; 94760; 96361; 96365; 96366; 96375; 96376; 97110; 97116; 97161; 97530; 99291; 99292; A4315; A4620; A6213; A6222; A6251; A6253; A6449; A7000; C9113; J0171; J0690; J0692; J0694; J1100; J1170; J1580; J1644; J1815; J1940; J2250; J2354; J2405; J2765; J3010; J3370; J3411; J3480; J3490; J7030; J7060; J7120; P9016; P9045

== ENCOUNTER 2018-02-18 09:04 | Emergency (ER) | payer MEDICAID ==
[~2018-02-18] VITALS: Ht 195.6 cm; Wt 101.0 kg
[~2018-02-18 09:04] MED LIST changes: -AMOX-445 PO; -PANT-47 PO; +PANT40TA4 PO
[2018-02-18] MEDS ORDERED: MUPI22OI30 TOP (09:27)
[2018-02-18 10:06] VITALS: BP 140/82
== END 2018-02-18 10:07 | disposition home or self-care (01) ==
LOC: ER 09:05
DX: Z48.02 Encounter for removal of sutures (principal); F12.10 Cannabis abuse, uncomplicated; F15.10 Other stimulant abuse, uncomplicated; Z79.899 Other long term (current) drug therapy; Z60.2 Problems related to living alone; Z56.0 Unemployment, unspecified
CPT/HCPCS: 99281

== ENCOUNTER 2018-07-20 03:23 | Emergency (ER) | payer MEDICAID ==
[~2018-07-20] VITALS: Ht 195.6 cm; Wt 127.3 kg
[2018-07-20] MEDS ORDERED: normal saline 1000ML IV soln IVB ONE (03:35)
[2018-07-20] MEDS ORDERED: ondansetron/PF 4mg/2ml inj IV ONE (03:35)
[2018-07-20] MEDS ORDERED: ipratropium/albuterol 3ml nebule NEB ONE (04:05)
[2018-07-20 04:13] LABS: BASOPHILS # (AUTO) 0.1 X10'3 (0-0.2); BASOPHILS % (AUTO) 1.1 % (0-1); EOSINOPHILS # (AUTO) 0.1 X10'3 (0-0.9); EOSINOPHILS % (AUTO) 1.4 % (0-6); HEMATOCRIT 38.6 % (42.0-52.0); HEMOGLOBIN 12.4 g/dl (14.0-17.9); LYMPHOCYTES # (AUTO) 1.5 X10'3 (1.1-4.8); LYMPHOCYTES % (AUTO) 24.2 % (21-51); MEAN CORPUSCULAR HEMOGLOBIN 24.6 PG (27.0-31.0); MEAN CORPUSCULAR HGB CONC 32.1 % (33.0-36.5); MEAN CORPUSCULAR VOLUME 76.8 FL (78-98); MEAN PLATELET VOLUME 7.4 FL (7.4-10.4); MONOCYTES # (AUTO) 0.6 X10'3 (0-0.9); MONOCYTES % (AUTO) 8.8 % (2-12); NEUTROPHILS % (AUTO) 64.5 % (42-75); PLATELET COUNT 380 X10'3 (140-440); RED BLOOD COUNT 5.02 X10'6 (4.70-6.10); RED CELL DISTRIBUTION WIDTH 18.4 % (11.5-14.5); WHITE BLOOD COUNT 6.3 X10'3 (4.5-11.0)
[2018-07-20 04:21] LABS: ALANINE AMINOTRANSFERASE 105 U/L (12-78); ALBUMIN 3.1 G/DL (3.4-5.0); ALBUMIN/GLOBULIN RATIO 0.7 (1.1-1.5); ALKALINE PHOSPHATASE 105 IU/L (46-116); ANION GAP 13 (8-16); ASPARTATE AMINO TRANSFERASE 78 U/L (10-37); BILIRUBIN,TOTAL 0.3 MG/DL (0.1-1.0); BLOOD UREA NITROGEN 7 MG/DL (7-18); BUN/CREATININE RATIO 7.8 (5.4-32.0); CALCIUM 8.3 MG/DL (8.5-10.1); CHLORIDE 104 MMOL/L (99-107); GLUCOSE 97 MG/DL (70-104); LIPASE 160 U/L (73-393); POTASSIUM 3.5 MMOL/L (3.5-5.1); SODIUM 143 MMOL/L (135-145); TOTAL CARBON DIOXIDE 25.7 MMOL/L (24-32); TOTAL PROTEIN 7.8 G/DL (6.4-8.2); eGFR 87 ML/MIN
[2018-07-20] MEDS ORDERED: ALBU18HF2 INH (04:31)
[2018-07-20] MEDS ORDERED: AZIT250T2 PO (04:31)
[2018-07-20 05:23] VITALS: BP 126/72
== END 2018-07-20 05:25 | disposition home or self-care (01) ==
LOC: ER 03:24
DX: J44.9 Chronic obstructive pulmonary disease, unspecified (principal); F10.129 Alcohol abuse with intoxication, unspecified; F12.90 Cannabis use, unspecified, uncomplicated; F15.90 Other stimulant use, unspecified, uncomplicated; Z79.2 Long term (current) use of antibiotics; Z79.899 Other long term (current) drug therapy; Y90.9 Presence of alcohol in blood, level not specified; Z60.2 Problems related to living alone; Z59.0 Homelessness; Z56.0 Unemployment, unspecified
CPT/HCPCS: 36415; 71045; 80053; 83690; 85025; 94640; 94760; 96361; 96374; 99285; J2405; J7030

== ENCOUNTER 2018-08-06 07:07 | Emergency (ER) | payer MEDICAID ==
[~2018-08-06] VITALS: Ht 195.6 cm; Wt 120.5 kg
[~2018-08-06 07:07] MED LIST changes: +ALBU18HF2 INH
[2018-08-06 08:02] LABS: BASOPHILS # (AUTO) 0.1 X10'3 (0-0.2); BASOPHILS % (AUTO) 1.5 % (0-1); EOSINOPHILS # (AUTO) 0.2 X10'3 (0-0.9); EOSINOPHILS % (AUTO) 3.9 % (0-6); HEMATOCRIT 44.4 % (42.0-52.0); HEMOGLOBIN 14.3 g/dl (14.0-17.9); LYMPHOCYTES # (AUTO) 1.9 X10'3 (1.1-4.8); LYMPHOCYTES % (AUTO) 43.4 % (21-51); MEAN CORPUSCULAR HEMOGLOBIN 24.7 PG (27.0-31.0); MEAN CORPUSCULAR HGB CONC 32.1 % (33.0-36.5); MEAN PLATELET VOLUME 7.3 FL (7.4-10.4); MONOCYTES # (AUTO) 0.4 X10'3 (0-0.9); MONOCYTES % (AUTO) 8.6 % (2-12); NEUTROPHILS # (AUTO) 1.9 X10'3 (1.8-7.7); NEUTROPHILS % (AUTO) 42.6 % (42-75); PLATELET COUNT 414 X10'3 (140-440); RED BLOOD COUNT 5.77 X10'6 (4.70-6.10); RED CELL DISTRIBUTION WIDTH 19.6 % (11.5-14.5); WHITE BLOOD COUNT 4.4 X10'3 (4.5-11.0)
[2018-08-06 08:24] LABS: ALANINE AMINOTRANSFERASE 100 U/L (12-78); ALBUMIN 3.5 G/DL (3.4-5.0); ALBUMIN/GLOBULIN RATIO 0.7 (1.1-1.5); ALKALINE PHOSPHATASE 100 IU/L (46-116); ANION GAP 10 (8-16); ASPARTATE AMINO TRANSFERASE 68 U/L (10-37); BILIRUBIN,TOTAL 0.4 MG/DL (0.1-1.0); BLOOD UREA NITROGEN 7 MG/DL (7-18); BUN/CREATININE RATIO 8.1 (5.4-32.0); CALCIUM 8.5 MG/DL (8.5-10.1); CHLORIDE 106 MMOL/L (99-107); CREATININE 0.86 MG/DL (0.60-1.10); GLUCOSE 100 MG/DL (70-104); SODIUM 142 MMOL/L (135-145); TOTAL CARBON DIOXIDE 26.1 MMOL/L (24-32); TOTAL PROTEIN 8.5 G/DL (6.4-8.2); eGFR > 90 ML/MIN
[2018-08-06 08:26] LABS: CLARITY,URINE CLEAR (Clear); COLOR,URINE YELLOW (Yellow); GLUCOSE, URINE NEGATIVE (Neg); KETONES,URINE NEGATIVE (Neg); LEUKOCYTE ESTERASE ,URINE NEGATIVE (Neg); NITRITES, URINE NEGATIVE (Neg); OCCULT BLOOD,URINE NEGATIVE (Neg); PROTEIN,URINE NEGATIVE (Neg); UROBILINOGEN,URINE 0.2 E.U/dL (0.2-1.0)
[2018-08-06 08:28] LABS: UA COLLECTION TYPE URINAL
[2018-08-06 10:56] VITALS: BP 129/73
== END 2018-08-06 10:15 | disposition home or self-care (01) ==
LOC: ER 07:08
DX: G62.9 Polyneuropathy, unspecified (principal); F10.10 Alcohol abuse, uncomplicated; F12.90 Cannabis use, unspecified, uncomplicated; F15.90 Other stimulant use, unspecified, uncomplicated; F17.210 Nicotine dependence, cigarettes, uncomplicated; Z79.899 Other long term (current) drug therapy; Z56.0 Unemployment, unspecified; Z60.2 Problems related to living alone; Z59.0 Homelessness
CPT/HCPCS: 36415; 80053; 81003; 85025; 99284

== ENCOUNTER 2018-08-06 16:20 | Emergency (ER) | payer MEDICAID ==
[~2018-08-06] VITALS: Ht 182.9 cm; Wt 113.0 kg
[2018-08-06 17:45] VITALS: BP 162/78
== END 2018-08-06 17:50 | disposition home or self-care (01) ==
LOC: ER 16:21
DX: G62.9 Polyneuropathy, unspecified (principal); F15.90 Other stimulant use, unspecified, uncomplicated; F12.90 Cannabis use, unspecified, uncomplicated; Z56.0 Unemployment, unspecified; Z59.0 Homelessness; Z79.899 Other long term (current) drug therapy; Z87.19 Personal history of other diseases of the digestive system; Z60.2 Problems related to living alone
CPT/HCPCS: 99284

== ENCOUNTER 2018-08-06 18:10 | Emergency (ER) | payer MEDICAID ==
[~2018-08-06] VITALS: Ht 195.6 cm; Wt 180.0 kg
[2018-08-06 18:33] VITALS: BP 166/110
== END 2018-08-06 18:44 | disposition home or self-care (01) ==
LOC: ER 18:10
DX: G62.9 Polyneuropathy, unspecified (principal); F12.90 Cannabis use, unspecified, uncomplicated; F15.90 Other stimulant use, unspecified, uncomplicated; R45.1 Restlessness and agitation; Z59.0 Homelessness; Z56.0 Unemployment, unspecified; Z79.899 Other long term (current) drug therapy
CPT/HCPCS: 99281